=== PATIENT | male | born 1945 | race Caucasian/White ===

== ENCOUNTER 2024-10-20 14:44 | Inpatient (IN) | payer MEDICARE, OTHER, SELFPAY ==
[2024-10-20] VITALS (12 sets, daily range): BP systolic 101–171; BP diastolic 42–83; BMI 25.8; BMI 25.0
--- NOTE | 2024-10-20 09:34 | ED.GENMED ---
History of Present Illness
General
Chief Complaint: Abdominal Pain
Source: patient and ambulance crew
Exam Limitations: none
Time Seen by Provider: 10/20/24 09:27
Nursing documentation reviewed up to this point in time: agreed with
History of Present Illness
History of Present Illness:
79-year-old male presents emergency room due to syncope episode. This occurred when he was kneeling down at [employer]. He complains of lower and mid abdominal pain. He denies any chest pain or shortness of breath.
Past History
Past History
ED Past Medical History: HTN
ED Past Surgical History: Appendectomy and Orthopedic (Back)
Social History
Tobacco: Former smoker
Alcohol: Occasional
Drug: None
Review of Systems
Review of Systems
Allergies reviewed?: Yes
All Other Systems: Not applicable
Constitutional: Reports no symptoms
EENT: Reports no symptoms
Respiratory: Reports no symptoms
Cardiac: Reports syncope
ABD/GI: Reports abdominal pain
: Reports no symptoms
Musculoskeletal: Reports no symptoms
Skin: Reports no symptoms
Neurological: Reports no symptoms
Endocrine: Reports no symptoms
Hematologic/Lymphatic: Reports no symptoms
Psychiatric: Reports no symptoms
Phy Exam
Physical Exam
Physical Exam:
Physical Exam
General: no apparent distress, not acutely ill
Neck: supple. no meningeal signs. normal posterior pharynx
Heart: s1/s2 regular rate and rhythm, no murmur. equal radial
pulses.
HEENT: Pupils equal round reactive to light, EOMI
Lungs: no acute respiratory distress. clear bilaterally
Abdomen: normal bowel sounds. Diffuse tenderness, no rebound or guarding. no CVAT
Neuro: alert and oriented. no focal neurological deficits cranial nerves II through XII intact
Skin: no rash
Psychiatric: well kept. interactive and cooperative
Extremities: no edema. no calf tenderness. negative homans. good distal pulses
Course
Orders/Labs/Results
Orders:
Orders
10/20/24 09:28
Electrocardiogram (*1) Urgent
Reason for Study: Abdominal Pain
10/20/24 09:33
Electrocardiogram (*1) Stat
Reason for Study: Abdominal Pain
CT Abd/Pel (IV only)-DH only Urgent
Comment:
Reason For Exam: diffuse abdominal pain
Cardiac Monitoring- Treatment ONCE
EKG- Treatment ONCE
IV Insert/Care/Rem.- Treatment PRN
Pulse Ox/cont/shift [RESP] Stat
Quantity: 1
10/20/24 09:38
Complete Blood Count/With Diff Urgent
Troponin I Urgent
10/20/24 Lunch
NPO
Allow oral meds: Yes
Allow clear liquids: Sips of Clears
10/20/24 10:01
Comprehensive Metabolic Panel Urgent
Lipase Urgent
10/20/24 11:36
Urinalysis Reflex To Culture Urgent
Date Specimen was Collected: 10/20/24
Time Specimen was Collected: 11:34
Urine Microscopic Reflex Cult Urgent
10/20/24 11:49
HYDROmorphone [Dilaudid] 0.5 mg IV NOW STA
10/20/24 11:51
Ondansetron Injectable [Zofran] 4 mg IV NOW STA
10/20/24 14:11
Lactated Ringers [Lr] 500 ml IV BOLUS
10/20/24 14:26
Admit/Transfer Patient As Directed
Co-Sign Provider:
Level of Care: Inpatient admission
Assign to:: Telemetry
Physician / Group: Hospitalist
Diagnosis: Acute Pancreatitis
Reason for Telemetry: Other
Other Reason for Telemetry: Hrt Mr
Date to Stop Telemetry: 10/22/24
Time to Stop Telemetry: 11:00
Reason for Hospitalization: Acute Pancreatitis
Expected length of stay greater than two midnights?: Yes
ELOS- Estimated Length of Stay in days: 3
I certify the patient meets the requirements for IP care: Yes
PRN Pain Medication Management As Directed
May give lesser potent ordered pain med per pt: Yes
preference::
Protocol:: Medication orders for pain may be administered in a
manner that supports deferring to patient preference
when the pt is:
- Requesting an ordered lesser potent pain medication.
Least to most potent pain medications are defined
as: acetaminophen < NSAID < tramadol < opioids
(morphine, oxycodone, hydromorphone).
- Requesting a lesser dose of the same medication IF
ORDERED.
- Requesting a less intrusive route of administration
if both routes are prescribed by the provider (PO <
IV).
10/20/24 14:27
Code Status As Directed
Resuscitation Status: Full Code
10/20/24 15:00
Lactated Ringers [Lr] 1,000 ml IV 150 mls/hr
10/20/24 15:01
Troponin I Routine
10/20/24 16:48
Acetaminophen [Tylenol] 650 mg PO Q4HPRN PRN
Bisacodyl [Dulcolax] 10 mg RECTAL [id number] PRN
Docusate W/Senna [Senokot-S] 1 tablet PO BIDPRN PRN
HYDROmorphone [Dilaudid] 0.5 mg IV Q4HPRN PRN
Oxycodone [Roxicodone] 5 mg PO Q4HPRN PRN
Pantoprazole [Protonix IV] 40 mg IV DAILY
Polyethylene Glycol Powder [Miralax] 17 grams PO DAILYPRN PRN
10/20/24 16:48
Echo 2D MMode Color/Doppler Routine
Reason for Study: MR AA
GASTROINTESTINAL CONSULT Routine
Consulting Provider: Milla Wheeler
Was physician already notified: Yes
Reason for consult: Pancreatitis
MRI Abdomen [MR Abdomen W/o & W Contrast] Routine
Comment: pls DO MRCP also
Reason For Exam: pancreatitis, weight loss
Recent pill cam endoscopy?: No
Activity As Directed
Activity Level: Ambulate
Vital Signs As Directed
Frequency: q4h
DX Deep Vein Thrombosis Video Routine
10/20/24 18:00
Enoxaparin Sodium [Lovenox] 40 mg SC QPM
10/21/24 06:00
Complete Blood Count/No Diff IN AM
Comprehensive Metabolic Panel IN AM
Lipase IN AM
Triglycerides IN AM
10/22/24 11:00
DC Protocol for Telemetry ONCE
Abnormal Lab Results
10/20/24 10/20/24 10/20/24
09:38 10:01 11:36
RBC 4.31 L 10^6/uL
(4.70-6.10)
Hct 38.5 L %
(39.0-52.0)
MCH 31.1 H pg
(27.0-31.0)
Absolute Monos (auto) 0.7 H 10^3/uL
(0.1-0.6)
Lymphocytes % 19.0 L %
(20.5-51.1)
Chloride 108 H mmol/L
(98-107)
BUN 29 H mg/dl
(9-20)
Glucose 172 H mg/dl
(70-99)
Lipase > 4000 H* U/L
(23-300)
Urine Bacteria (Reflex) Few A
(Negative)
Urine Albumin (Reflex) 2+ A
(Neg - Trace)
10/20/24 09:38
10/20/24 10:01
Vital Signs
Initial and Last Documented VS:
Initial Vital Signs
BP
146/56
10/20/24 09:28
Last Documented Vital Signs
Temp Pulse Resp BP Pulse Ox
97.4 F 109 20 154/79 100
10/20/24 17:01 10/20/24 17:01 10/20/24 17:01 10/20/24 17:01 10/20/24 17:01
MDM/Problems Addressed
Differential Diagnosis Includes:
Pancreatitis, ACS, dysrhythmia
MDM/Problems Addressed:
79-year-old male with pancreatitis, syncope. Admit to hospitalist.
Chronic conditions affecting care: Cancer (Prostate)
*Radiology
Radiology exam reviewed: radiology read reviewed (CT abdomen pelvis shows pancreatitis)
*Pulse Oximetry
Patient hypoxic: no
*EKG
Interpreted by ED Provider?: Yes
EKG Intrepretation Date: 10/20/24
EKG Intrepretation Time: 09:30
Interpretation: abnormal
Comparison EKG: no comparison EKG present
Heart Rate: 65
Rate: normal
Rhythm: sinus
[place]: normal axis
Interval: normal interval
QRS Pattern: right bundle branch block
Ischemia: no ischemia
*Director Content Marketing Interpretation
Rate: normal
Interpretation: normal
Heart Rate: 66
Rhythm: sinus
*Critical Care Note
Total Time (30-74mins, 75-104mins- exclusive of procedures): Not Applicable
Patient Management
Social determinants of health affecting care: Living situation and Strong social support
Discussion with other providers: Hospitalist
Escalation/DeEscalation of care consider admission/obs:
Admission indicated
ED Attending Note
-
Portions of this chart may have been created with voice recognition software.� Occasional wrong word or��sound alike� substitutions may have occurred due to the inherent limitations of voice recognition software.
Discharge Plan
Departure
Patient Disposition: Admit
Date of Disposition: 10/20/24
Time of Disposition: 11:21
Admit to: Telemetry
Presentation/result/management discussed w/ accepting MD/DO: Hospitalist
Patient with high blood pressure during this ER visit?: Yes
Condition: Good
Discharge Problem:
Pancreatitis, Syncope
Interventions
Interventions:
*Risk Screen - Suicide Last Done: 10/20/24 09:31
*General Assessment Last Done: 10/20/24 09:31
*Neglect/Abuse Screening Last Done: 10/20/24 09:31
*ED COVID-19 Vaccine History Last Done: 10/20/24 09:53
*Nursing Disposition Last Done: 10/20/24 16:57
NI-Czuczb-Emltntczek Assessment Last Done: 10/20/24 09:54
Discharge Date and Time
Discharge Date/Time: 10/20/24 17:02
[2024-10-20 09:57] LABS: % Basophils 0.5 % (0-2); % Eosinophils 1.3 % (0-6); % Immature Granulocytes 0.3 % (0-0.5); % Monocytes 7.6 % (1.7-9.3); % Neutrophils 71.3 % (42.2-75.2); Absolute Eosinophils 0.1 10^3/uL (0-0.7); Absolute Lymphocytes 1.7 10^3/uL (1.2-3.4); Absolute Monocytes 0.7 10^3/uL (0.1-0.6); Absolute Neutrophils 6.3 10^3/uL (1.4-6.5); Hematocrit 38.5 % (39.0-52.0); Hemoglobin 13.4 g/dL (13.0-18.0); Mean Corp Hgb Conc. 34.8 g/dL (33.0-37.0); Mean Corpuscular Hgb 31.1 pg (27.0-31.0); Mean Corpuscular Volume 89.3 fL (80.0-94.0); Mean Platelet Volume 9.5 fL (7.4-10.4); Nucleated Red Blood Cells % 0 % (-); Platelet Count 219 10^3/uL (130-400); Red Blood Cell Count 4.31 10^6/uL (4.70-6.10); Red Cell Dist. Width 14.1 % (11.5-14.5); White Blood Cell Count 8.8 10^3/uL (4.8-10.8)
[2024-10-20 10:13] LABS: Troponin I 0.024 ng/ml
[2024-10-20 10:20] LABS: ALT (SGPT) 17 U/L (0-50); AST (SGOT) 22 U/L (17-59); Alkaline Phosphatase 77 U/L (38-126); Blood Urea Nitrogen 29 mg/dl (9-20); Calcium 10.1 mg/dl (8.4-10.2); Carbon Dioxide 24 mmol/L (22-30); Chloride 108 mmol/L (98-107); Glucose 172 mg/dl (70-99); Potassium 3.6 mmol/L (3.5-5.1); Sodium 139 mmol/L (135-145); Total Bilirubin 0.9 mg/dl (0.2-1.3); Total Protein 6.5 g/dl (6.3-8.2); eGFR > 60.00
[2024-10-20 10:42] LABS: Lipase > 4000 U/L (23-300)
[2024-10-20 11:43] LABS: Urine Albumin 2+ (Neg - Trace); Urine Bilirubin Negative (Negative); Urine Character Clear (Clear); Urine Color Yellow; Urine Glucose Negative (Negative); Urine Ketone Negative (Negative); Urine Leukocyte Negative (Negative); Urine Nitrite Negative (Negative); Urine Occult Blood Negative (Negative); Urine Specific Gravity 1.005 (<1.030); Urine Urobilinogen Negative (Neg - 1+); Urine pH 6.5 (5.0-9.0)
[2024-10-20 11:52] LABS: Urine Bacteria Few (Negative); Urine Red Blood Cell 0-2 /HPF (0-2); Urine White Cell 0-2 /HPF (0-5)
[2024-10-20] MEDS: DILAUDID 0.5 MG IV ×3 (12:01→19:21)
[2024-10-20] MEDS: ZOFRAN 4 MG IV (12:01)
--- NOTE | 2024-10-20 14:12 | CM ---
Patient seen at bedside in ED. Patient with also present. Patient states that they live in a 2 story home with no DME at home. Patient with no past VN or SNF placement. Patient PCP is Dr. Santiago and he uses the [facility] [address] in [place].
Patient plan is home with no needs. Patient complaining of significant pain. CM will continue to follow for discharge planning needs.
Plan;home with no needs vs home with VN
--- NOTE | 2024-10-20 14:31 | HPS.HSE ---
Family Physician
-
Family Physician: Hi Santiago
Chief Complaint
-
Abdominal pain
History of Present Illness
79-year-old male who was in [employer] kneeling down today and he had severe sharp pain in the abdomen then he passed out. He denies any chest pain or shortness of breath. Patient states that the pain was 6 out of 10 and is much better now. Radiates
to the back Dilaudid got the pain better
Medical History
Past Medical History
Past Medical History: Reports Other
Additional Past Medical History:
Discectomy, cataract surgery, tonsillectomy, appendectomy
Past Surgical History: Reports Other
Additional Past Surgical History:
Hypertension, history of prostate cancer
Social History
Tobacco: Former Smoker (Quit 15 years ago)
Alcohol: Other (Drinks 1 glass of [employer] on Monday /Monday /Monday)
Drug: None
Personal:
Living: With Family
Employment: Retired
Family History
Family History: Cancer (Father had some sort of cancer) and Other (Mother had CHF)
Allergies / Home Medications
Allergies reflects when Allergies were last updated in [email or web address].
Home Medications with original date entered in [email or web address]
Allergy/Medication List:
Allergies
Allergy/AdvReac Type Severity Reaction Status Date / Time
No Known Allergies Allergy Verified 10/20/24 09:31
Home Medications
amlodipine 10 mg tablet (Norvasc) 10 mg PO DAILY 10/20/24
glucosamine sulf dipot chlr,msm,chond 550 mg-C 30 mg-arianna 1 mg capsule (Glucosamine Chondroitin) 1 cap PO DAILY 10/20/24
ibuprofen 200 mg tablet (Advil) 400 mg PO HSPRN PRN mild pain 10/20/24
ketoconazole 2 % topical cream 1 applic topical DAILYPRN PRN scalp 10/20/24
lisinopril 20 mg-hydrochlorothiazide 25 mg tablet 1 tab PO DAILY 10/20/24
therapeutic multivitamin 1 tab PO DAILY 10/20/24
Review of Systems
-
A 12 point ROS was completed and negative except as noted: Yes
Respiratory: Denies Trouble Breathing
Cardiac: Denies Chest Pain
Abdomen/GI: Reports Abdominal Pain; Denies Diarrhea
Physical Exam
Vital Signs
Vital Signs
Temp Pulse Resp BP Pulse Ox
97.4 F 61 16 101/52 99
10/20/24 09:50 10/20/24 12:45 10/20/24 11:45 10/20/24 12:00 10/20/24 12:45
Physical Exam
General: Comfortable
Respiratory: Clear
Cardiac: S1/S2, Regular Rhythm and Murmur (aa)
GI: Soft, Normal Bowel Sounds and Tender (epigastric)
Neuro: AO x 3 and Nonfocal/grossly intact
Psych: Intact Judgment/Insight
Laboratory Results
-
10/20/24 09:38
10/20/24 10:01
Laboratory Results
Total Bilirubin 0.9 mg/dl (0.2-1.3) 10/20/24 10:01
AST 22 U/L (17-59) 10/20/24 10:01
ALT 17 U/L (0-50) 10/20/24 10:01
Alkaline Phosphatase 77 U/L (38-126) 10/20/24 10:01
Troponin I 0.024 ng/ml 10/20/24 09:38
Lipase > 4000 U/L (23-300) H* 10/20/24 10:01
Impression/Plan
-
IMPRESSION/PLAN:
79 y/o with ABd pain and syncope
CT A/P -Moderate pancreatic/peripancreatic edematous changes compatible with acute pancreatitis. No accompanying discrete well-formed abnormal focal fluid collection. Follow-up CT could be performed to assess for development of pancreatic
pseudocyst, if clinically warranted.
Small right inguinal hernia containing fat and loop of unremarkable small bowel without proximal small bowel dilatation/obstruction.
Bilateral subcentimeter low-attenuation renal lesions too small to characterize.
# Acute pancreatitis
Elevated lipase and also peripancreatic edematous changes on the CT
Patient uses moderate alcohol Monday 1 drink of Tyfone
With 12 pound weight loss in the past month and a half check MRI/MRCP
Follow lipase, check triglycerides
N.p.o. with IV fluids
GI evaluation
# Syncope-likely secondary to pain-follow symptoms with IV fluids
# 12 pound weight loss last colonoscopy was in 2016 showed diverticulosis of the descending colon, transverse colon and ascending colon. Nonbleeding external hemorrhoids
# Bifascicular block on EKG and patient also has heart murmur. Check 1 set of troponin. Check echo routine
# Hypertension-blood pressure on the low side therefore hold lisinopril hydrochlorothiazide and amlodipine
# History of prostate cancer
# Diverticulosis
# DVT prophylaxis-Lovenox
# Full code
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 He did have 12 pound weight loss which he attributes to that.
Discussed with at bedside
[2024-10-20] MEDS: LR 500 IV (14:55)
[2024-10-20 15:41] LABS: Troponin I 0.014 ng/ml
[2024-10-20] MEDS: LR 1000 IV ×2 (16:32→23:57)
[2024-10-20] MEDS: PROTONIX IV 40 MG IV (17:14)
[2024-10-20] MEDS: LOVENOX 40 MG SC (17:14)
[2024-10-20] MEDS: NSS (PRESERVATIVE FREE) 10 ML IV (17:15)
--- NOTE | 2024-10-20 17:50 | PTCARENOTE ---
Received pt from ED. AAOx3. All medication administered as prescribed. Pt can make needs known. Updated on plan of care. All safety measures are in place.
[2024-10-20] MEDS: SENOKOT-S 1 TABLET PO (19:21)
[2024-10-20] MEDS: ROXICODONE 5 MG PO (20:52)
[2024-10-21] VITALS (7 sets, daily range): BP systolic 150–174; BP diastolic 64–85
[2024-10-21] MEDS: ROXICODONE 5 MG PO (01:43)
--- NOTE | 2024-10-21 03:42 | PTCARENOTE ---
Pt has been anxious at times and forgetful. AAOx2. Mild tremors. Gen weakness. ST to NSR w/ BBB in the monitor. C/O adb and lower back pain. See JUL. Bed alarm in place.
[2024-10-21] MEDS: LR 1000 IV ×4 (06:35→20:24)
[2024-10-21 07:12] LABS: Hematocrit 37.6 % (39.0-52.0); Hemoglobin 13.1 g/dL (13.0-18.0); Mean Corp Hgb Conc. 34.8 g/dL (33.0-37.0); Mean Corpuscular Hgb 30.8 pg (27.0-31.0); Mean Corpuscular Volume 88.5 fL (80.0-94.0); Mean Platelet Volume 9.9 fL (7.4-10.4); Platelet Count 198 10^3/uL (130-400); Red Blood Cell Count 4.25 10^6/uL (4.70-6.10); Red Cell Dist. Width 14.2 % (11.5-14.5); White Blood Cell Count 19.4 10^3/uL (4.8-10.8)
[2024-10-21 07:53] LABS: ALT (SGPT) 18 U/L (0-50); AST (SGOT) 40 U/L (17-59); Albumin 3.9 g/dl (3.5-5.0); Alkaline Phosphatase 56 U/L (38-126); Blood Urea Nitrogen 27 mg/dl (9-20); Calcium 9.9 mg/dl (8.4-10.2); Carbon Dioxide 29 mmol/L (22-30); Chloride 104 mmol/L (98-107); Estimated Creatinine Clearance 73 ml/min; Glucose 133 mg/dl (70-99); Potassium 3.3 mmol/L (3.5-5.1); Sodium 139 mmol/L (135-145); Total Bilirubin 1.5 mg/dl (0.2-1.3); Total Protein 6.3 g/dl (6.3-8.2); Triglycerides 70 mg/dl (10-149); eGFR > 60.00
[2024-10-21] MEDS: NSS (PRESERVATIVE FREE) 10 ML IV (08:41)
[2024-10-21] MEDS: PROTONIX IV 40 MG IV (08:41)
[2024-10-21] MEDS: FLUSH (NSS) 1 FLUSH IV ×4 (08:41→15:04)
[2024-10-21] MEDS: DILAUDID 0.5 MG IV (08:48)
[2024-10-21 10:12] LABS: Lipase > 4000 U/L (23-300)
--- NOTE | 2024-10-21 11:56 | CON.GI ---
Consultation
-
Date/Time Consultation Requested: 10/21/24
Date/Time Consultation Performed: 10/21/24
Requesting Provider:
Performing Provider:
Reason for Consultation: Abdominal pain
Medical History
Chief Complaint / HPI
Chief Complaint: Abdominal pain
History of Present Illness:
79-year-old male with history of hypertension presenting with complaints of mid/lower abdominal pain and syncopal episode when he was at [employer] yesterday, came to the emergency room, noted to have elevated lipase suggesting pancreatitis. As per
patient, in the morning he felt fine and at [employer] had dizziness, syncopal episode and abdominal pain, 10/10, radiation to the back. No previous similar episodes. No nausea, vomiting, heartburn or trouble swallowing. No constipation, diarrhea,
blood in the stool or black stool. He did lose about 10 pounds in the last 6 weeks after his was diagnosed with cancer. No previous episodes of pancreatitis. He has been on lisinopril for several years, no recent new medication. Drinks 1
glass of alcohol on Monday, Monday and Monday and not more than that and not on the week. No family history of pancreatitis or pancreatic cancer. Former smoker but not recently. No regular NSAID use.
On admission, LFTs were normal but today total bilirubin was 1.5. Also noted today was elevation in the white count to 19, normal in admission. Normal creatinine and hemoglobin. CT scan of the abdomen pelvis with IV contrast only showing moderate
pancreatic/peripancreatic edematous change compatible with acute pancreatitis. Small right inguinal hernia containing fat and loops of small bowel without obstruction or dilation.
No fevers or chills noted. Currently getting Ringer lactate at 150 mL an hour.
Colonoscopy was in [address] Dumont showing benign polyps in the cecum and diverticulosis,Colonoscopy in 2010 and 2008 showing benign polyps.
Past Medical History
Past Medical History: HTN and Other (Prostrate cancer)
Past Surgical History: Appendectomy
Social History
Tobacco: Former Smoker
Alcohol: Occasional (1 drink on Monday, Monday and Monday)
Family History
Family History: Other (No family history of colon cancers)
Allergies / Home Medications
Allergy/AdvReac Type Severity Reaction Status Date / Time
No Known Allergies Allergy Verified 10/20/24 09:31
�Medication �Instructions �Recorded
amlodipine 10 mg tablet (Norvasc) 10 mg PO DAILY 10/20/24
glucosamine sulf dipot 1 cap PO DAILY 10/20/24
chlr,msm,chond 550 mg-C 30 mg-arianna
1 mg capsule (Glucosamine
Chondroitin)
ibuprofen 200 mg tablet (Advil) 400 mg PO HSPRN PRN mild pain 10/20/24
ketoconazole 2 % topical cream 1 applic topical DAILYPRN PRN scalp 10/20/24
lisinopril 20 1 tab PO DAILY 10/20/24
mg-hydrochlorothiazide 25 mg tablet
therapeutic multivitamin 1 tab PO DAILY 10/20/24
Review of Systems
-
All other systems: A 12 pt ROS was Negative except as stated above in HPI
Vital Signs
Temp Pulse Resp BP Pulse Ox
98.5 F 103 18 151/64 97
10/21/24 11:34 10/21/24 11:34 10/21/24 11:34 10/21/24 11:34 10/21/24 11:34
Physical Exam
Exam
Cardiac: S1/S2 and Regular Rhythm
GI: Soft and Tender (Tenderness on palpation in the upper abdomen and decreased bowel sounds)
Results
WBC 19.4 10^3/uL (4.8-10.8) H 10/21/24 06:16
Hgb 13.1 g/dL (13.0-18.0) 10/21/24 06:16
Hct 37.6 % (39.0-52.0) L 10/21/24 06:16
MCV 88.5 fL (80.0-94.0) 10/21/24 06:16
Plt Count 198 10^3/uL (130-400) 10/21/24 06:16
Absolute Neuts (auto) 6.3 10^3/uL (1.4-6.5) 10/20/24 09:38
Sodium 139 mmol/L (135-145) 10/21/24 06:16
Potassium 3.3 mmol/L (3.5-5.1) L 10/21/24 06:16
Chloride 104 mmol/L (98-107) 10/21/24 06:16
Carbon Dioxide 29 mmol/L (22-30) 10/21/24 06:16
BUN 27 mg/dl (9-20) H 10/21/24 06:16
Creatinine 0.9 mg/dL (0.7-1.3) 10/21/24 06:16
Calcium 9.9 mg/dl (8.4-10.2) 10/21/24 06:16
Total Bilirubin 1.5 mg/dl (0.2-1.3) H 10/21/24 06:16
AST 40 U/L (17-59) 10/21/24 06:16
ALT 18 U/L (0-50) 10/21/24 06:16
Alkaline Phosphatase 56 U/L (38-126) 10/21/24 06:16
Lipase > 4000 U/L (23-300) H* 10/21/24 06:16
Diagnostic Image Results:
Prior GI Procedures:
EGD:
Colonoscopy:
Assessment / Plan
-
79-year-old male with history of hypertension, prostrate cancer presented with acute onset abdominal pain and syncopal episode, in the ER noted to have elevated lipase suggesting pancreatitis, LFTs have been normal, gallbladder appears normal. No
previous history of pancreatitis. No recent new medication
- Acute pancreatitis, first episode, no gallstones, alcohol on the weekends and not more than a drink. No recent new medication.
Unclear etiology
Currently on clear liquid diet, would not advance.
pain control.
Increase Ringer lactate 200 cc an hour
Will continue to trend LFTs and lipase
Will add CRP
Eventually will need MRI/MRCP
-
-
Thank you for consultation and allowing me to participate in the patient's care. Please call the supervisor component assembler GI physician during the after hours with any questions or concerns.
[2024-10-21] MEDS: KCL ELIXIR 40 MEQ PO (12:28)
--- NOTE | 2024-10-21 12:31 | W.PN.HOSP.TC ---
Today's Communication/Plan
-
Add Toradol IV
Clear liquid diet
Decrease rate of IV fluids
GI consult
MRI
Assessment / Plan
Assessment / Plan
Gen-AAOx3, NAD
HEENT-NC, AT, anicteric, clear oral mm
Neck-supple
CV-reg, systolic M, +S1/S2
Lungs-clear B/L
Abd-soft, periumbilical tenderness without guarding
Ext-no edema
Musculoskeletal-no cyanosis, clubbing
Skin-warm and dry
Neuro-grossly non-focal
Psych-calm, cooperative
Acute pancreatitis -etiology possibly due to alcohol use versus other. No gallstones noted on CT. MRI abdomen pending. Start clear liquid diet. GI consulted.
Leukocytosis noted, afebrile. Looks nontoxic.
Decrease rate of IV fluids. Continue IV Dilaudid as needed. Add Toradol IV as needed.
First episode of pancreatitis.
12 pound weight loss over the past 6 weeks, patient attributes to recent diagnosis of malignancy for his . Appetite did go down.
Alcohol cessation advised.
Hypokalemia -will replete. Check magnesium.
Incidental right inguinal hernia -asymptomatic. Noted on CT scan. Discussed with patient and family to follow-up as outpatient.
Syncope -suspect vasovagal. Check orthostatics when more stable.
Essential hypertension -stable.
history of prostate cancer
Diverticulosis
Full code
Family updated at the bedside.
Anticipated Discharge: > 48 hours
Subjective/Interval History
-
Date of Service: October 21, 2024
Patient seen and examined. Complaining of abdominal pain.
Objective Data
-
Labs:
Laboratory Results
10/21/24
06:16
WBC 19.4 H
Hgb 13.1
Hct 37.6 L
Plt Count 198
Sodium 139
Potassium 3.3 L
Chloride 104
Carbon Dioxide 29
BUN 27 H
Creatinine 0.9
Glucose 133 H
Calcium 9.9
Total Bilirubin 1.5 H
AST 40
ALT 18
Alkaline Phosphatase 56
Vital Signs:
Vital Signs
Temp Pulse Resp BP Pulse Ox
98.5 F 103 18 151/64 97
10/21/24 11:34 10/21/24 11:34 10/21/24 11:34 10/21/24 11:34 10/21/24 11:34
I&O
10/20/24 10/21/24 10/22/24
06:59 06:59 06:59
Intake Total 1650 / 1650
Balance 1650 / 1650
Review of Systems
-
History Source: Patient
All other systems: Reviewed and negative
[2024-10-21] MEDS: LR IV (13:04)
[2024-10-21] MEDS: TORADOL 15 MG IV ×2 (13:07→20:23)
[2024-10-21 13:23] LABS: Magnesium 1.5 mg/dl (1.6-2.3)
[2024-10-21] MEDS: MAGNESIUM SULFATE 100 IV (15:03)
[2024-10-21] MEDS: THIAMINE INJECTION 200 MG IV (15:03)
[2024-10-21] MEDS: FOLVITE 1 MG PO (15:04)
--- NOTE | 2024-10-21 16:26 | PTCARENOTE ---
Pt AAO x3; forgetful; cooperative. LOJA well, OOB to BR with minimal assistance x1; denies weakness/dizziness w/OOB activity. VSS. Telemetry:NSR with PAC's/PVC's. On room air- pulse ox 94%, no SOB noted. Abd soft, rounded, pt c/o lower rt abd
pain radiating to Rt lower back; good effect with IV Toradol. Pt kurt small amts clear liquids PO. Voiding in BR without difficulty. IVF's RL @ 200 ml /hr infusing via R forearm site without sx of infiltration. Resting quietly at present. Will
continue to monitor.
[2024-10-21] MEDS: LOVENOX 40 MG SC (17:36)
[2024-10-22] VITALS (9 sets, daily range): BP systolic 146–167; BP diastolic 65–79; BMI 25.0
[2024-10-22] MEDS: LR 1000 IV ×3 (04:31→14:56)
[2024-10-22 07:33] LABS: Hematocrit 35.2 % (39.0-52.0); Hemoglobin 12.2 g/dL (13.0-18.0); Mean Corp Hgb Conc. 34.7 g/dL (33.0-37.0); Mean Corpuscular Hgb 31.1 pg (27.0-31.0); Mean Corpuscular Volume 89.8 fL (80.0-94.0); Mean Platelet Volume 10.1 fL (7.4-10.4); Platelet Count 172 10^3/uL (130-400); Red Blood Cell Count 3.92 10^6/uL (4.70-6.10); Red Cell Dist. Width 14.2 % (11.5-14.5); White Blood Cell Count 23.7 10^3/uL (4.8-10.8)
[2024-10-22 07:51] LABS: ALT (SGPT) 21 U/L (0-50); AST (SGOT) 63 U/L (17-59); Albumin 3.4 g/dl (3.5-5.0); Alkaline Phosphatase 54 U/L (38-126); Blood Urea Nitrogen 24 mg/dl (9-20); Calcium 9.2 mg/dl (8.4-10.2); Carbon Dioxide 29 mmol/L (22-30); Chloride 104 mmol/L (98-107); Estimated Creatinine Clearance 82 ml/min; Glucose 123 mg/dl (70-99); Magnesium 2.1 mg/dl (1.6-2.3); Potassium 3.2 mmol/L (3.5-5.1); Sodium 138 mmol/L (135-145); Total Bilirubin 1.9 mg/dl (0.2-1.3); Total Protein 5.8 g/dl (6.3-8.2); eGFR > 60.00
[2024-10-22] MEDS: NSS (PRESERVATIVE FREE) 10 ML IV ×3 (07:58→23:27)
[2024-10-22] MEDS: THIAMINE INJECTION 200 MG IV (07:58)
[2024-10-22] MEDS: FOLVITE 1 MG PO (07:58)
[2024-10-22] MEDS: PROTONIX IV 40 MG IV (07:58)
--- NOTE | 2024-10-22 09:28 | W.PN.GI.CBS2 ---
Addendum entered and electronically signed by Bharti Jiang Do, MD 10/22/24 14:46:
I saw and examined the patient.
The HEAT TREAT OPERATOR's note was reviewed and I agree with the note.
Comment: Overnight confusion pulled out IV and naked in bathroom. bedside thinks he drinks more ETOH than previously reported. Vitals stable exam diffuse TTP confusion sleepy but arousable. Labs reviewed.
Recommendation
- Bolus LR 1L x1 now
- Pain management
- MRI/MRCP when able to tolerate test
- NPO for now due to mental status
updated bedside will follow with you
Original Note:
Today's Communication / Plan
-
etiology of pancreatitis - etiology unclear no stones on CT, ETOH 1 glass with dinner, TG/calciums stable, no hx family or personal hx pancreatitis on past , no new meds
trend CRP
add IGG4
await MRI with MRCP
NPO
pain control on 10/05 was 8 on admission
cont IVF LR at 120ml/hr
keep electrolyte corrected
will need OP follow up after admission
Assessment / Plan
-
79-year-old male with history of hypertension, prostrate cancer presented with acute onset abdominal pain and syncopal episode, in the ER noted to have elevated lipase suggesting pancreatitis, LFTs have been normal, gallbladder appears normal. No
previous history of pancreatitis. No recent new medication, TG 70, calcium 9.9.
10/20/24 CT Abd/Pel (IV only)-DH only
Moderate pancreatic/peripancreatic edematous changes compatible with acute pancreatitis. No accompanying discrete well-formed abnormal focal fluid collection. Follow-up CT could be performed to assess for development of pancreatic pseudocyst, if
clinically warranted.
Small right inguinal hernia containing fat and loop of unremarkable small bowel without proximal small bowel dilatation/obstruction.
Bilateral subcentimeter low-attenuation renal lesions too small to characterize.
- Acute pancreatitis, first episode, no gallstones, alcohol on the weekends and not more than a drink. No recent new medication.
-leukocytosis
-increased CRP
-mild increased LFT's
-hypokalemia
other med problems:
-HTN
-prostate CA
PLAN:
etiology of pancreatitis - etiology unclear no stones on CT, ETOH 1 glass with dinner, TG/calciums stable, no hx family or personal hx pancreatitis on past , no new meds
trend CRP
add IGG4
await MRI with MRCP
NPO
pain control on 10/05 was 8/ on admission
cont IVF LR at 120ml/hr
keep electrolyte corrected
will need OP follow up after admission
Subjective
Subjective
Date of Service: October 22, 2024
10/19 brown stool, NPO for MRI-- pain 01/05 on admission now 10/05
Objective
Data Reviewed
Laboratory Data:
Laboratory Results
10/22/24 06:09
10/22/24 06:09
Laboratory Results
Magnesium 2.1 mg/dl (1.6-2.3) 10/22/24 06:09
Total Bilirubin 1.9 mg/dl (0.2-1.3) H 10/22/24 06:09
AST 63 U/L (17-59) H 10/22/24 06:09
ALT 21 U/L (0-50) 10/22/24 06:09
Alkaline Phosphatase 54 U/L (38-126) 10/22/24 06:09
Lipase > 4000 U/L (23-300) H* 10/21/24 06:16
Vital Signs and I&O:
Vital Signs
Temp Pulse Resp BP Pulse Ox
98.1 F 93 18 153/76 99
10/22/24 03:00 10/22/24 03:00 10/22/24 03:00 10/22/24 03:00 10/22/24 03:00
I&O
10/21/24 10/22/24 10/23/24
06:59 06:59 06:59
Intake Total 1649 / 1649 3420 / 3420
Output Total 575 / 575
Balance 1649 2845 / 2845
Physical Exam
Physical Exam
HEENT: Anicteric and Moist mucous membranes
Cardiology: Normal Sinus Rhythm
Pulmonary: Clear
GI: Soft, Distended (mild ) and Tender (epigastric )
Extremities: No Edema
Neuro: Non Focal
[2024-10-22] MEDS: KCL 270 MEQ IV (09:42)
[2024-10-22 10:07] LABS: % Basophils 0.1 % (0-2); % Immature Granulocytes 0.9 % (0-0.5); % Lymphocytes 2.4 % (20.5-51.1); % Monocytes 6.4 % (1.7-9.3); % Neutrophils 90.2 % (42.2-75.2); Absolute Immature Granulocytes 0.2 10^3/uL (0-0.05); Absolute Lymphocytes 0.6 10^3/uL (1.2-3.4); Absolute Monocytes 1.5 10^3/uL (0.1-0.6); Absolute Neutrophils 21.4 10^3/uL (1.4-6.5); Nucleated Red Blood Cells % 0 % (-)
[2024-10-22] MEDS: TORADOL 15 MG IV (11:05)
[2024-10-22] MEDS: ATIVAN 1 MG PO (11:05)
--- NOTE | 2024-10-22 12:19 | W.PN.HOSP.TC ---
Addendum entered and electronically signed by Riccardo Corea DO 10/22/24 15:50:
Transfer patient to IMU due to ongoing confusion and delirium. Code purple called overhead.
Left voicemail for patient's to call me back for an update.
Original Note:
Today's Communication/Plan
-
Alcohol withdrawal protocol
Await MRI
N.p.o.
Assessment / Plan
Assessment / Plan
Gen-AAOx3, NAD
HEENT-NC, AT, anicteric, clear oral mm
Neck-supple
CV-reg, systolic M, +S1/S2
Lungs-clear B/L
Abd-soft, periumbilical tenderness without guarding
Ext-no edema
Musculoskeletal-no cyanosis, clubbing
Skin-warm and dry
Neuro-grossly non-focal, bilateral hand tremors with arms extended
Psych-calm, cooperative
Acute pancreatitis -etiology possibly due to alcohol use versus other. No gallstones noted on CT. MRI abdomen pending, n.p.o. for MRI.
He has received 7.5 L of IV fluids during the first 48 hours of hospitalization. Continue lactated Ringer's IV at lower rate of 80 cc/h.
Leukocytosis noted, afebrile. Looks nontoxic.
Continue analgesics.
First episode of pancreatitis.
12 pound weight loss over the past 6 weeks, patient attributes to recent diagnosis of malignancy for his . Appetite did go down.
Delirium -concern for acute alcohol withdrawal syndrome. Suspect he drinks more than he admits to. Alcohol withdrawal protocol initiated. Continue thiamine, folic acid. Discussed with nursing.
Alcohol use disorder -as above. Alcohol cessation advised.
Hypokalemia -will replete. Potassium 3.2 this morning.
Hypomagnesemia -treated and improved.
Incidental right inguinal hernia -asymptomatic. Noted on CT scan. Discussed with patient and family to follow-up as outpatient.
Syncope -suspect vasovagal. Check orthostatics when more stable.
Essential hypertension -stable.
history of prostate cancer
Diverticulosis
Full code
Anticipated Discharge: > 48 hours
Subjective/Interval History
-
Date of Service: October 22, 2024
Patient seen and examined. Complaining of 5 out of 10 abdominal pain.
Objective Data
-
Labs:
Laboratory Results
10/22/24
06:09
WBC 23.7 H
Hgb 12.2 L
Hct 35.2 L
Plt Count 172
Sodium 138
Potassium 3.2 L
Chloride 104
Carbon Dioxide 29
BUN 24 H
Creatinine 0.8
Glucose 123 H
Calcium 9.2
Total Bilirubin 1.9 H
AST 63 H
ALT 21
Alkaline Phosphatase 54
Vital Signs:
Vital Signs
Temp Pulse Resp BP Pulse Ox
98.8 F 82 16 156/75 97
10/22/24 11:37 10/22/24 11:37 10/22/24 11:37 10/22/24 11:37 10/22/24 11:37
I&O
10/21/24 10/22/24 10/23/24
06:59 06:59 06:59
Intake Total 1650 / 1650 3420 / 3420
Output Total 575 / 575
Balance 1650 / 1650 2845 / 2845
Review of Systems
-
History Source: Patient
All other systems: Reviewed and negative
[2024-10-22] MEDS: NSS (PRESERVATIVE FREE) 0.5 ML IV ×3 (13:36→17:10)
[2024-10-22] MEDS: ATIVAN 1 MG IV ×3 (13:36→17:10)
--- NOTE | 2024-10-22 13:55 | CM ---
Pt confused . Unable to ask about [facility] consult.
visiting.
Will continue to assess and assist .
PLAN Offer [facility] when not confused.
Discharge planning on going.
--- NOTE | 2024-10-22 13:58 | PTCARENOTE ---
Received patient this am AAOx3 however patient seems to be forgetful. Patient then became restless and was trying to climb out of bed. Spoke to Dr. Corea. Pt started on MSAS at 11:00. Pt scored a 5. Medicated patient with Ativan 1mg PO as per
protocol. Pt was sleeping. 13:00 Pt woke up agitated, restless, took gown an tele monitor off and continuously climbing out of bed. MSAS 8 Pt medicated with Ativan 1 mg IV as per protocol at 13:40. Pt currently sleeping. Made patient comfortable.
Cont to assess patient status.
--- NOTE | 2024-10-22 16:05 | PTCARENOTE ---
1440 MSAS was a 4. Pt sleeping calmly in the bed. Cont to assess patient status.
--- NOTE | 2024-10-22 16:05 | PTCARENOTE ---
15:40 Pt woke up agitated, restless, impulsive, climbing out of bed. Pt very uncooperative. Code purple called. Pt medicated with Ativan 1 mg IV. Pt placed back to bed. Dr. Corea made aware. Plan is to transferred patient to IMU.
[2024-10-22] MEDS: LOVENOX 40 MG SC (17:10)
--- NOTE | 2024-10-22 17:12 | PTCARENOTE ---
Report given to IMU and patient transferred.
--- NOTE | 2024-10-22 18:00 | PTCARENOTE ---
Received patient into room 3344 from [facility]. Patient asleep on transfer but as soon as patient was turned, pt attempting to sit up and get OOB, pulling off gown and all equipment applied. Attempted to redirect patient and reorient, but unsuccessful.
Pt not answering questions or following directions. TT to , bilateral wrist restraints ordered and Phenobarbital added, see MAR. Patient grossly incontinent of bladder on arrival. at bedside and updated.
[2024-10-22] MEDS: PHENOBARBITAL 97.5 MG IV ×2 (18:09→21:29)
[2024-10-22] MEDS: ATIVAN 2 MG IV ×2 (20:12→23:27)
[2024-10-22 22:03] LABS: Blood Urea Nitrogen 23 mg/dl (9-20); Calcium 8.8 mg/dl (8.4-10.2); Carbon Dioxide 27 mmol/L (22-30); Chloride 107 mmol/L (98-107); Estimated Creatinine Clearance 82 ml/min; Glucose 121 mg/dl (70-99); Potassium 3.4 mmol/L (3.5-5.1); Sodium 136 mmol/L (135-145); eGFR > 60.00
[2024-10-22] MEDS: KCL 260 MEQ IV (22:33)
[2024-10-23] VITALS (17 sets, daily range): BP systolic 135–197; BP diastolic 69–132
[2024-10-23] MEDS: LR 1000 IV ×3 (02:00→22:05)
[2024-10-23] MEDS: DILAUDID 0.5 MG IV (02:26)
[2024-10-23] MEDS: ATIVAN 1 MG IV ×2 (02:26→12:40)
[2024-10-23 04:26] LABS: Hematocrit 32.3 % (39.0-52.0); Hemoglobin 11.3 g/dL (13.0-18.0); Mean Corpuscular Hgb 31.4 pg (27.0-31.0); Mean Corpuscular Volume 89.7 fL (80.0-94.0); Mean Platelet Volume 10.4 fL (7.4-10.4); Platelet Count 153 10^3/uL (130-400); Red Cell Dist. Width 14.2 % (11.5-14.5); White Blood Cell Count 20.8 10^3/uL (4.8-10.8)
[2024-10-23 04:46] LABS: ALT (SGPT) 22 U/L (0-50); AST (SGOT) 46 U/L (17-59); Alkaline Phosphatase 56 U/L (38-126); Blood Urea Nitrogen 22 mg/dl (9-20); Calcium 8.7 mg/dl (8.4-10.2); Carbon Dioxide 26 mmol/L (22-30); Chloride 109 mmol/L (98-107); Estimated Creatinine Clearance 82 ml/min; Glucose 121 mg/dl (70-99); Potassium 3.4 mmol/L (3.5-5.1); Sodium 138 mmol/L (135-145); Total Bilirubin 1.4 mg/dl (0.2-1.3); Total Protein 5.3 g/dl (6.3-8.2); eGFR > 60.00
[2024-10-23] MEDS: KCL 270 MEQ IV (05:43)
--- NOTE | 2024-10-23 06:25 | PTCARENOTE ---
Patient lethargic, confused, and unable to follow commands overnight. MSAS max of 11. PRN ativan given. Remains in b/l wrist restraints. sp02 dropped to the high 80s while asleep-2 liters NC placed.
[2024-10-23 06:27] LABS: Ammonia < 9 umol/L (9-30)
--- NOTE | 2024-10-23 07:46 | W.PN.HOSP.TC ---
Addendum entered and electronically signed by Riccardo Corea DO 10/23/24 08:26:
Updated patient's on the phone. All questions answered.
Her cell phone number is [phone].
Original Note:
Today's Communication/Plan
-
Hold sedation this morning
Clear liquid diet
Assessment / Plan
Assessment / Plan
Gen-sedated
HEENT-NC, AT, anicteric
Neck-supple
CV-reg, systolic M, +S1/S2
Lungs-clear B/L
Abd-soft, nontender
Ext-no edema
Musculoskeletal-no cyanosis, clubbing
Skin-warm and dry
Acute pancreatitis -suspect alcohol induced pancreatitis given alcohol withdrawal syndrome. No gallstones noted on CT. Okay to discontinue MRI abdomen, discussed with Dr. Zuniga from GI service. Start clear liquid diet.
He has received 10.5 L of IV fluids so far over the first 3 days of hospitalization. Continue lactated Ringer's IV at lower rate of 80 cc/h.
Leukocytosis noted, afebrile. Looks nontoxic. WBC count now trending down.
Bilirubin peaked at 1.9, repeat 1.4. ALT normal, mild AST elevation resolved.
Continue analgesics.
First episode of pancreatitis.
12 pound weight loss over the past 6 weeks, patient attributes to recent diagnosis of malignancy for his . Appetite did go down.
Acute alcohol withdrawal syndrome - suspect he drinks more than he admits to. Continue lorazepam as needed, received 9 mg of lorazepam since yesterday. Phenobarbital taper initiated 10/22 evening. Currently sedated.
Alcohol use disorder -as above. Alcohol cessation advised.
Hypokalemia -will replete. Potassium 3.4 this morning.
Hypomagnesemia -treated and improved.
Incidental right inguinal hernia -asymptomatic. Noted on CT scan. Discussed with patient and family to follow-up as outpatient.
Syncope -suspect vasovagal. Check orthostatics when more stable.
Essential hypertension -stable. Resume lisinopril. Hold HCTZ.
history of prostate cancer
Diverticulosis
Full code
Anticipated Discharge: > 48 hours
Subjective/Interval History
-
Date of Service: October 23, 2024
Patient seen and examined. Sedated, hard to arouse.
Objective Data
-
Labs:
Laboratory Results
10/22/24 10/23/24
21:41 03:47
WBC 20.8 H
Hgb 11.3 L
Hct 32.3 L
Plt Count 153
Sodium 136 138
Potassium 3.4 L 3.4 L
Chloride 107 109 H
Carbon Dioxide 27 26
BUN 23 H 22 H
Creatinine 0.8 0.8
Glucose 121 H 121 H
Calcium 8.8 8.7
Total Bilirubin 1.4 H
AST 46
ALT 22
Alkaline Phosphatase 56
Vital Signs:
Vital Signs
Temp Pulse Resp BP Pulse Ox
99.4 F 98 27 150/81 97
10/23/24 03:13 10/23/24 06:00 10/23/24 06:00 10/23/24 06:00 10/23/24 06:00
I&O
10/22/24 10/23/24 10/24/24
06:59 06:59 06:59
Intake Total 3420 / 3420 3060 / 3060
Output Total 575 / 575 400 / 400
Balance 2845 / 2845 2660 / 2660
Review of Systems
-
Unable to obtain full review of systems at this time due to: Acuity
[2024-10-23] MEDS: PROTONIX IV 40 MG IV (08:35)
[2024-10-23] MEDS: THIAMINE INJECTION 200 MG IV (08:35)
[2024-10-23] MEDS: NSS (PRESERVATIVE FREE) 10 ML IV (08:35)
[2024-10-23] MEDS: PHENOBARBITAL 97.5 MG IV ×2 (08:36→17:02)
[2024-10-23] MEDS: FOLVITE PO (08:39)
--- NOTE | 2024-10-23 10:44 | W.PN.GI.CBS2 ---
Today's Communication / Plan
-
Cancel MRI given cause of pancreatitis likely ETOH related and pt not cooperative for scan given altered mental status
Adv diet as tolerates currently limited due to mental status
C/w IVF
GI will sign off please call for ?
Assessment / Plan
-
79-year-old male with history of hypertension, prostrate cancer presented with acute onset abdominal pain and syncopal episode, in the ER noted to have elevated lipase suggesting pancreatitis, LFTs have been normal, gallbladder appears normal. No
previous history of pancreatitis. No recent new medication, TG 70, calcium 9.9.
10/20/24 CT Abd/Pel (IV only)-DH only
Moderate pancreatic/peripancreatic edematous changes compatible with acute pancreatitis. No accompanying discrete well-formed abnormal focal fluid collection. Follow-up CT could be performed to assess for development of pancreatic pseudocyst, if
clinically warranted.
Small right inguinal hernia containing fat and loop of unremarkable small bowel without proximal small bowel dilatation/obstruction.
Bilateral subcentimeter low-attenuation renal lesions too small to characterize.
Impression
- Acute pancreatitis, first episode,
no gallstones on CT
suspect ETOH induced
no new meds
- ETOH withdrawal
-leukocytosis
-increased CRP
-mild increased LFT's
-hypokalemia
-HTN
-prostate CA
Recommendations
- Given altered mental status not able to get MRI
- Suspect in ETOH withdrawal now and transferred to IMU for agitation
- C/w IVF
- CLD advance as tolerates with limiting factor now being mental status
GI will sign off please call for ?
Subjective
Subjective
Date of Service: October 23, 2024
He was agitated overnight and transferred to IMU. Currently not conversant. Not eating CLD due to mental status
Objective
Data Reviewed
Laboratory Data:
Laboratory Results
10/23/24 03:47
10/23/24 03:47
Laboratory Results
Magnesium 2.1 mg/dl (1.6-2.3) 10/22/24 06:09
Total Bilirubin 1.4 mg/dl (0.2-1.3) H 10/23/24 03:47
AST 46 U/L (17-59) 10/23/24 03:47
ALT 22 U/L (0-50) 10/23/24 03:47
Alkaline Phosphatase 56 U/L (38-126) 10/23/24 03:47
Lipase > 4000 U/L (23-300) H* 10/21/24 06:16
Vital Signs and I&O:
Vital Signs
Temp Pulse Resp BP Pulse Ox
100.6 F H 98 27 150/81 97
10/23/24 07:20 10/23/24 06:00 10/23/24 06:00 10/23/24 06:00 10/23/24 06:00
I&O
10/22/24 10/23/24 10/24/24
06:59 06:59 06:59
Intake Total 3420 / 3420 3060 / 3060
Output Total 575 / 575 400 / 400 325 / 325
Balance 2845 / 2845 2660 / 2660 -325 / -325
Physical Exam
Physical Exam
GEN: No acute distress sleepy arousable
HEENT: anicteric, extraocular movements intact, clear oropharynx without exudates
GI: soft, obese mildly distended, not tender to palpation, normal active bowel sounds, no hepatosplenomegaly
EXT: warm, well perfused, trace edema bilaterally
NEURO: AAOx3, non-focal
[2024-10-23] MEDS: NSS (PRESERVATIVE FREE) 0.5 ML IV (12:40)
--- NOTE | 2024-10-23 16:05 | DOWNTIME ---
There was a [employer] Numerical Control Machine Tool Operator Downtime on 10/23/2024 from 1230 to 10/23/2024 at 1550. Downtime documentation of patient's care, including medication administrations, has been reconciled in the electronic record per guidelines. Refer to the
patient's paper chart under the miscellaneous tab to see printed paper medication records and downtime forms.
--- NOTE | 2024-10-23 16:24 | PTCARENOTE ---
Addendum entered by Nery Guerrero RN 10/23/24 16:48:
Dr Corea ordered blood cultures and lactic acid levels drawn. Also ordered Vancomycin and Maxipime; await pharmacy confirmation. Instructed by Dr Corea to administer toradol for his fever and abdominal pain at this time. Patient's and
daughter in room and updated.
Original Note:
MSAS =8. Patient restless, slightly diaphoretic. Axillary temp 101.8. TT sent to Dr Corea to make him aware. Await update.
[2024-10-23] MEDS: TORADOL 15 MG IV (16:35)
[2024-10-23 17:26] LABS: Lactic Acid 1.2 mmol/L (0.7-2.0)
--- NOTE | 2024-10-23 17:54 | PHA.VAN.IN ---
Assessment
- Assessment
Renal Function: Appears similar to baseline
Maximum Temperature: 101.8 F axillary 10/23 1623
Concomitant Antimicrobials: cefepime
Plan
- Plan
Initial / Loading Dose: vanc 2000mg pending administration
Maintenance Regimen: dosing by level
Monitoring: random level 10/24 06
Pharmacokinetics Vancomycin I
- -
Patient Age: 79
Patient Sex: Female
Vancomycin Day #: 1
Indication: Gi / Intra-Abdominal
Height / Weight:
Height 6 ft 1 in
Actual Weight 85.91 kg
- Vital Signs / Lab Results
Temp Pulse Resp BP Pulse Ox
101.8 F H 101 34 166/76 96
10/23/24 16:23 10/23/24 16:00 10/23/24 16:00 10/23/24 14:00 10/23/24 16:00
Lab Results - Hematology
10/21/24 10/22/24 10/23/24
06:16 06:09 03:47
WBC 19.4 H 23.7 H 20.8 H
Lab Results - Chemistry
10/21/24 10/22/24 10/22/24
06:16 06:09 21:41
BUN 27 H 24 H 23 H
Creatinine 0.9 0.8 0.8
Estimated Creat Clear 73 82 82
Albumin 3.9 3.4 L
10/23/24
03:47
BUN 22 H
Creatinine 0.8
Estimated Creat Clear 82
Albumin 3.0 L
10/23/24
16:59
Lactic Acid 1.2
[2024-10-23] MEDS: STERILE WATER FOR INJECTION 10 ML IV (18:08)
[2024-10-23] MEDS: MAXIPIME 2000 MG IV (18:08)
[2024-10-23] MEDS: VANCOCIN 540 MG IV (18:09)
[2024-10-23] MEDS: LOVENOX 40 MG SC (18:09)
--- NOTE | 2024-10-23 18:35 | PTCARENOTE ---
Temp 98.8 axillary; currently sleeping. Blood cultures drawn. Maxipime given as ordered; vancomycin infusing at this time. Lactic acid resulted 1.2; temp 98.8 axillary.
--- NOTE | 2024-10-23 21:44 | PTCARENOTE ---
Assumed care of pt from dayshift RN. Pt is lethargic and arouses to tactile stimulation. Pt is not oriented. NSR on monitor with BBB and occasional PVCs. Pt is 94% on 2L NC. Pt is not awake enough to take oral medications. Pt has a moist productive
cough and this RN suctioned pt for thick white sputum. Oral hygiene completed utilizing suction kit. Pt resting in bed with bed alarm on, restraints in place and call aguilera in reach.
[2024-10-23] MEDS: APRESOLINE 5 MG IV (22:04)
--- NOTE | 2024-10-23 22:43 | PTCARENOTE ---
Pt's blood pressure 170/83 at start of shift and WALLPAPER SCRAPER notified. This RN was instructed to trend blood pressures and notify WALLPAPER SCRAPER is SBP is > 180. Pt's bp 197/84, hr 90 and EVERETT Scott notified. Rx received for PRN Hydralazine for SBP > 180. Medication
administered (see MAR).
--- NOTE | 2024-10-23 23:52 | PTCARENOTE ---
Current bp 155/80, hr 83. NSR on monitor. Pt asleep in bed with bed alarm on.
[2024-10-24] VITALS (30 sets, daily range): BP systolic 116–186; BP diastolic 61–115
[2024-10-24] MEDS: ATIVAN 2 MG IV (00:41)
[2024-10-24] MEDS: STERILE WATER FOR INJECTION 10 ML IV ×2 (01:02→09:57)
[2024-10-24] MEDS: MAXIPIME 2000 MG IV ×2 (01:02→09:56)
[2024-10-24] MEDS: TYLENOL/FEVERALL 650 MG RECTAL (03:24)
[2024-10-24 04:38] LABS: % Basophils 0.2 % (0-2); % Eosinophils 0.2 % (0-6); % Immature Granulocytes 0.5 % (0-0.5); % Lymphocytes 3.9 % (20.5-51.1); % Monocytes 8.6 % (1.7-9.3); % Neutrophils 86.6 % (42.2-75.2); Absolute Immature Granulocytes 0.1 10^3/uL (0-0.05); Absolute Lymphocytes 0.7 10^3/uL (1.2-3.4); Absolute Monocytes 1.6 10^3/uL (0.1-0.6); Absolute Neutrophils 15.7 10^3/uL (1.4-6.5); Hematocrit 35.3 % (39.0-52.0); Hemoglobin 12.1 g/dL (13.0-18.0); Mean Corp Hgb Conc. 34.3 g/dL (33.0-37.0); Mean Corpuscular Hgb 30.6 pg (27.0-31.0); Mean Corpuscular Volume 89.4 fL (80.0-94.0); Mean Platelet Volume 10.2 fL (7.4-10.4); Nucleated Red Blood Cells % 0 % (-); Platelet Count 194 10^3/uL (130-400); Red Blood Cell Count 3.95 10^6/uL (4.70-6.10); Red Cell Dist. Width 14.1 % (11.5-14.5); White Blood Cell Count 18.1 10^3/uL (4.8-10.8)
[2024-10-24 04:48] LABS: Vancomycin Random 10.9 ug/ml
[2024-10-24 04:57] LABS: ALT (SGPT) 23 U/L (0-50); AST (SGOT) 37 U/L (17-59); Albumin 3.2 g/dl (3.5-5.0); Alkaline Phosphatase 72 U/L (38-126); Blood Urea Nitrogen 20 mg/dl (9-20); Calcium 9.1 mg/dl (8.4-10.2); Carbon Dioxide 28 mmol/L (22-30); Chloride 108 mmol/L (98-107); Estimated Creatinine Clearance 82 ml/min; Glucose 124 mg/dl (70-99); Lipase 50 U/L (23-300); Potassium 3.3 mmol/L (3.5-5.1); Sodium 141 mmol/L (135-145); Total Bilirubin 1.6 mg/dl (0.2-1.3); Total Protein 5.8 g/dl (6.3-8.2); eGFR > 60.00
--- NOTE | 2024-10-24 07:53 | W.PN.HOSP.TC ---
Today's Communication/Plan
-
Continue antibiotics
Await cultures
Chest x-ray
Possible ICU transfer
Assessment / Plan
Assessment / Plan
Gen-agitated, confused
HEENT-NC, AT, anicteric
Neck-supple
CV-reg, systolic M, +S1/S2
Lungs-clear B/L
Abd-soft, nontender
Ext-no edema
Musculoskeletal-no cyanosis, clubbing
Skin-warm and dry
Sepsis -differential diagnosis includes acute pancreatitis versus other etiology. Blood cultures pending. Started empiric antibiotics October 23, cefepime and vancomycin. WBC count trending down. Last fever 10/23.
Check chest x-ray.
Echocardiogram performed 10/23 shows LVEF 60 to 65%, normal RV size and function, mild , thickened and calcified aortic valve with restricted leaflet motion, cannot rule out aortic valve vegetation.
Acute pancreatitis -suspect alcohol induced pancreatitis given alcohol withdrawal syndrome. No gallstones noted on CT. MRI abdomen reordered by GI service.
Unfortunately he has had no oral intake since admission due to multiple factors including acute delirium as well as n.p.o. status for MRI of the abdomen.
If we can get his delirium under control, then potentially a Dobbhoff tube can be placed to start tube feeds.
He has received 12.5 L of IV fluids so far over the first 4 days of hospitalization. Continue lactated Ringer's IV at lower rate of 80 cc/h.
Leukocytosis improving.
Bilirubin peaked at 1.9, repeat 1.6. ALT normal, mild AST elevation resolved.
Continue analgesics.
First episode of pancreatitis.
12 pound weight loss over the past 6 weeks, patient attributes to recent diagnosis of malignancy for his . Appetite did go down.
Multifactorial delirium -at this point given lack of improvement with phenobarbital and lorazepam I am not certain alcohol withdrawal is the only etiology. Suspect he may have delirium due to multiple factors including acute pancreatitis and acute
illness. Alcohol may be playing some role but unclear how much.
Phenobarbital discontinued. Will discuss with sterile proc tech feasibility of transfer to ICU for initiation of Precedex for treatment of his delirium and agitation.
Alcohol use disorder -reportedly only drinks 3 days/week.
Hypokalemia -will replete. Getting IV KCl rider now, repeat dose later today. Check magnesium, phosphate.
Hypomagnesemia -treated and improved.
Incidental right inguinal hernia -asymptomatic. Noted on CT scan. Discussed with patient and family to follow-up as outpatient.
Syncope -suspect vasovagal. Check orthostatics when more stable.
Essential hypertension -blood pressure elevated due to inability to give oral medications as well as delirium and potentially alcohol withdrawal.
history of prostate cancer
Diverticulosis
Full code
updated in person yesterday. Will keep her abreast of further developments.
Anticipated Discharge: > 48 hours
Subjective/Interval History
-
Date of Service: October 24, 2024
Patient seen and examined. Unfortunately he remains delirious, unable to converse but remains awake and agitated, trying to crawl out of bed.
Objective Data
-
Labs:
Laboratory Results
10/24/24
03:35
WBC 18.1 H
Hgb 12.1 L
Hct 35.3 L
Plt Count 194 D
Sodium 141
Potassium 3.3 L
Chloride 108 H
Carbon Dioxide 28
BUN 20
Creatinine 0.8
Glucose 124 H
Calcium 9.1
Total Bilirubin 1.6 H
AST 37
ALT 23
Alkaline Phosphatase 72
Vital Signs:
Vital Signs
Temp Pulse Resp BP Pulse Ox
99.0 F 80 20 154/76 99
10/24/24 07:25 10/24/24 06:00 10/24/24 06:00 10/24/24 06:00 10/24/24 06:00
I&O
10/23/24 10/24/2410/25/25
06:59 06:59 06:59
Intake Total 3060 / 3060
Output Total 400 / 400 525 / 525
Balance 2660 / 2660 -525 / -525
Review of Systems
-
Unable to obtain full review of systems at this time due to: Acuity
[2024-10-24] MEDS: KCL 270 MEQ IV ×2 (07:55→18:27)
[2024-10-24] MEDS: ATIVAN 1 MG IV (08:04)
[2024-10-24] MEDS: NSS (PRESERVATIVE FREE) 0.5 ML IV (08:05)
[2024-10-24 08:13] LABS: Magnesium 1.8 mg/dl (1.6-2.3); Phosphorus 1.8 mg/dl (2.5-4.5)
[2024-10-24] MEDS: LR 1000 IV ×2 (08:23→20:53)
[2024-10-24] MEDS: FOLVITE PO (08:24)
[2024-10-24] MEDS: PROTONIX IV 40 MG IV (08:24)
[2024-10-24] MEDS: THIAMINE INJECTION 200 MG IV (08:25)
--- NOTE | 2024-10-24 08:27 | PHA.VAN.FU ---
Vancomycin Assessment / Plan
- Assessment
Renal Function: Stable
WBC's are: Trending Down
Concomitant Antimicrobials: cefepime
- Assessment - Therapeutic Drug Monitoring
Random Level: 10.9 - drawn ~9.5H after after 2g load dosing
- Dosing Plan
Adjust Regimen to: Vanc 1000mg Q12H - first dose now then 1800
New Regimen Predicts: AUC (475), Peak (28.6), Trough (12.9)
- Monitoring Plan
No level(s) ordered at this time: consider levels in next few days
MRSA Screen: Ordered per protocol
- Follow Up
Pharmacy will continue to follow.
Vancomycin Follow UP
- -
Patient Age: 79
Patient Sex: Female
Vancomycin Day #: 2
Indication: Gi / Intra-Abdominal
Requesting Provider: Dr. Corea
Pertinent Antimicrobial Allergies:
NKDA
Height / Weight:
Height 6 ft 1 in
Actual Weight 85.91 kg
- Vital Signs / Lab Results
Temp Pulse Resp BP Pulse Ox
99.0 F 80 20 154/76 99
10/24/24 07:25 10/24/24 06:00 10/24/24 06:00 10/24/24 06:00 10/24/24 06:00
Lab Results - Hematology
10/22/24 10/23/24 10/24/24
06:09 03:47 03:35
WBC 23.7 H 20.8 H 18.1 H
Lab Results - Chemistry
10/22/24 10/22/24 10/23/24
06:09 21:41 03:47
BUN 24 H 23 H 22 H
Creatinine 0.8 0.8 0.8
Estimated Creat Clear 82 82 82
Albumin 3.4 L 3.0 L
10/24/24
03:35
BUN 20
Creatinine 0.8
Estimated Creat Clear 82
Albumin 3.2 L
10/23/24
16:59
Lactic Acid 1.2
Therapeutic Drug Monitoring
Random Vancomycin 10.9 ug/ml 10/24/24 03:35
[2024-10-24] MEDS: VANCOCIN 200 IV ×2 (08:43→17:17)
--- NOTE | 2024-10-24 10:50 | CON.INTV ---
Consultation
Consultation Request
Date/Time Consultation Requested: 10/24/2024 - 1007
Date/Time Consultation Performed: 10/24/2024 - 0
Requesting Provider: Dr. Corea
Performing Provider: Dr. Ji
Reason for Consultation: Agitation/Delirium
Medical History
-
Chief Complaint: Passed out
History of Present Illness:
79-year-old male with a past medical history of hypertension, depression, diverticulosis and colon polyps who presents with a syncopal episode while at [employer]. Patient was kneeling at [employer], when he had passed out. He developed epigastric pain
and had a bowel movement. Brought here to the hospital at where he had another bowel movement, but reportedly nonbloody. Patient was initially afebrile in the ER to 97.4 �F, pulse rate 65, respiratory rate 12, BP 146/56 and saturating 98% on
room air. Initial labs showed WBC 8.8, Hb 13.4, lipase >4000, troponin negative at 0.024, and urinalysis was negative for signs of UTI. CT abdomen/pelvis on 10/20/2024 showed acute pancreatitis with a small right inguinal hernia without SBO. In
the ER he was given 0.5 mg Dilaudid + Zofran, and admitted initially to telemetry for further monitoring/care. He was started on IV fluids and continue with prn Dilaudid. IV Toradol was added prn on 10/21. GI was initially consulted on 10/21 and
recommended LR at 200 cc/h while trending LFTs + lipase with eventual MRI/MRCP. His white count slowly worsened and peaked at 23.7 on 10/22, and LFTs also started to rise. On 10/23, he spiked a fever and was started on broad-spectrum antibiotics
with cefepime + IV vancomycin. He also started to become less cooperative and more restless starting on 10/22, treated with Ativan for possible alcohol withdrawal. Priyanka juarez called on the late afternoon of 10/22 and patient transferred to the IMU
for closer monitoring. Continued to be lethargic, confused and not following commands, requiring restraints with prn Ativan continuing. Given that the lethargy and agitation has continued, [employer] service is now consulted for consideration for
Precedex with transferred to ICU.
When I saw the patient, he was resting in bed, appears confused uncooperative. Patient's , Meenakshi, at bedside. Patient hypertensive to 182/78, heart rate 94, and saturating 95% on room air. He remains afebrile. All of the 's questions
were answered. According to the nurse, when patient gets Ativan he only improves for short period of time and then becomes agitated/lethargic and confused again.
PMHx: Colonic polyps, hypertension, depression, diverticulosis
PSHx: Tonsillectomy, back surgery, appendectomy
Past Medical History
Past Medical History: Other (Above as per HPI)
Past Surgical History: Other (Above as per HPI)
Social History
Tobacco: Smoker (0.5PPD - quit 15 years ago)
Alcohol: Occasional (According to patient drinks 1-2 drinks of [employer] [place] Monday through Monday)
Drug: None
Personal:
Living: With Family
Employment: Retired
Family History
Family History: Cancer (Father: Pancreatic cancer; Mother: bone cancer)
Allergies / Home Medications
Allergies
Allergy/AdvReac Type Severity Reaction Status Date / Time
No Known Allergies Allergy Verified 10/20/24 09:31
Home Medications
�Medication �Instructions �Recorded �Confirmed �Last Taken �Type
amlodipine 10 mg tablet (Norvasc) 10 mg PO DAILY Blood Pressure 10/20/24 10/20/24 10/20/24 History
glucosamine sulf dipot 1 cap PO DAILY Supplement 10/20/24 10/20/24 10/20/24 History
chlr,msm,chond 550 mg-C 30 mg-arianna
1 mg capsule (Glucosamine
Chondroitin)
ibuprofen 200 mg tablet (Advil) 400 mg PO HSPRN PRN mild pain 10/20/24 10/20/24 Unknown History
ketoconazole 2 % topical cream 1 applic topical DAILYPRN PRN scalp 10/20/24 10/20/24 Unknown History
lisinopril 20 1 tab PO DAILY Blood Pressure 10/20/24 10/20/24 10/20/24 History
mg-hydrochlorothiazide 25 mg tablet
therapeutic multivitamin 1 tab PO DAILY Supplement 10/20/24 10/20/24 10/20/24 History
Review of Systems
-
Unable to Obtain full review of systems at this time due to: Acuity
Vitals / Labs / Diagnostic Testing
Vital Signs
Temp Pulse Resp BP Pulse Ox
99.0 F 80 20 154/76 99
10/24/24 07:25 10/24/24 06:00 10/24/24 06:00 10/24/24 06:00 10/24/24 06:00
Lab Data
10/24/24 03:35
10/24/24 03:35
Diagnostic Testing:
Physical Exam
-
HEENT: Normocephalic and Anicteric
Cardiovascular: S1/S2 and Peripheral Edema (negative)
Respiratory: Wheeze (negative), Rales (negative), Rhonchi (negative) and Non-Labored Respirations
GI: Soft, Non Distended, Non Tender and Normal Bowel Sounds
Neurology: Tremors (negative) and Other (Lethargic, sometimes answering questions appropriately but is significantly confused)
Skin: Warm and Dry
General: Respiratory Distress (negative), Chills (negative), Sweats (negative) and Other (Elderly male, appears uncomfortable)
Assessment
-
Assessment: 79-year-old male with a past medical history of hypertension, depression, diverticulosis and colon polyps who presents with a syncopal episode while at [employer]. Patient was kneeling at [employer], when he had passed out. He developed
epigastric pain and had a bowel movement. Brought here to the hospital at where he had another bowel movement, but reportedly nonbloody. Patient was initially afebrile in the ER to 97.4 �F, pulse rate 65, respiratory rate 12, BP 146/56 and
saturating 98% on room air. Initial labs showed WBC 8.8, Hb 13.4, lipase >4000, troponin negative at 0.024, and urinalysis was negative for signs of UTI. CT abdomen/pelvis on 10/20/2024 showed acute pancreatitis with a small right inguinal hernia
without SBO. In the ER he was given 0.5 mg Dilaudid + Zofran, and admitted initially to telemetry for further monitoring/care. He was started on IV fluids and continue with prn Dilaudid. IV Toradol was added prn on 10/21. GI was initially
consulted on 10/21 and recommended LR at 200 cc/h while trending LFTs + lipase with eventual MRI/MRCP. His white count slowly worsened and peaked at 23.7 on 10/22, and LFTs also started to rise. On 10/23, he spiked a fever and was started on
broad-spectrum antibiotics with cefepime + IV vancomycin. He also started to become less cooperative and more restless starting on 10/22, treated with Ativan for possible alcohol withdrawal. Priyanka juarez called on the late afternoon of 10/22 and
patient transferred to the IMU for closer monitoring. Continued to be lethargic, confused and not following commands, requiring restraints with prn Ativan continuing. Given that the lethargy and agitation has continued, [employer] service is now
consulted for consideration for Precedex with transferred to ICU.
Chronic conditions [employer] CON[employer]CT WORK[employer]: Colonic polyps, hypertension, depression, diverticulosis, history of prostate cancer
Impression:
#Acute encephalopathy - DDx includes toxic-metabolic encephalopathy vs delirium vs alcohol-withdrawal (unlikely)
#Pancreatitis
#Leukocytosis likely due to pancreatitis and possibly component of reactive given his acute encephalopathy
#Acute normocytic anemia (mild)
#Hypokalemia
#Transaminitis with hyperbilirubinemia
#History of hypertension
#History of depression
#Family history of pancreatic cancer (father)
Plan:
- Appears that his acute cephalopathy has been ongoing for a few days since 10/22 and I have high suspicion this is narcotic induced from his Dilaudid + Ativan/phenobarbital that he received
- Received Dilaudid 0.5 mg in the ER and then continued with infrequent 0.5 mg Dilaudid from 10/20 until 10/23, also oxycodone 5mg x 2 doses on 10/20 + 10/21
- Since 10/22, he has received total of 12mg (IV) + 1 (PO) Ativan, and started on phenobarbital on evening of of 10/22
- Started on cefepime 10/23 but his agitation was ongoing before this was started
- Would stop all ativan now and stop dilaudid
- Will give a dose of zyprexa
- May be worth giving a trial of Flumazenil
- If mentation worsens despite being off Ativan then would check CT head, although have lower suspicion for an acute CVA given he is moving all 4 extremities
- Maintain SpO2 >90-94%
- Continue aspiration precautions given his confusion and high risk of aspiration
- Would keep NPO for now until mentation improves
- Regarding his pancreatitis, continue with IVF with LR @ 80cc/hr
- GI on board - recs appreciated
- MRCP when pt able to cooperate
- Continue IV vanc and Zosyn (changed from cefepime given 10/23 - 10/24)
- Pain control - try to use toradol first if pain med needed, and if does not work and he is refractory then use dilaudid only if absolutely needed, but given the lowest effective dose
- Trend LFTs
- Doubtful he is withdrawing from alcohol given his Hx of alcohol use per the
- DC MSAS; DC prn ativan and DC phenobarbital
- Ok to continue thiamine as this is a low risk medication
- Maintain MAP>65
- Replete electrolytes with K>4, Mg>2
- Maintain euglycemia with goal BG 140-180
- Trend H/H and transfuse if needed to keep Hb>7g/dL; keep plt>20k, unless there is concern for bleeding then keep plt>50k
- prn nebulized bronchodilators - not currently bronchospastic
- DVT ppx: LMWH
Code status: Full code
Continue with IMU level of care for now and if patient's agitation persists despite interventions above then would recommend transferring to ICU for Precedex drip while awaiting clearance of Ativan + phenobarbital
I discussed the case with the patient's , Meenakshi, and answered all of her questions.
Critical care statement: A total of 38 minutes of critical care time was provided for this patient today. This includes management of unstable vital signs, evaluation of the patient at bedside, reviewing the patient's pertinent medical records
including radiographs, microbiology, laboratory evaluations, and discussion with primary team, consultants, pharmacy, nutrition, physical therapy, case management, charge nurse, critical care nursing, and respiratory therapy.
--- NOTE | 2024-10-24 11:26 | PTCARENOTE ---
Addendum entered by Sparkle Lawson RN 10/24/24 11:33:
MSAS =8 for each Ativan dose.
Original Note:
Received this am, became restless, agitated throwing legs over the siderails despite being in wrist restraints. Condom cath was off -soakied sheets and coviedien pads. He answers some questions appropriately, in angry tone of voice. Constantly
rearranging restraints/ wires/ condom cath replaced as he wont keep pad in place and everything is soaked. So far this am- Ativan given 1mg x2 so far. HE does settle for a bit and then started up again. now at bedside- upset, updated and
awaiting transfer to ICU. ICU and Pad Extractor Tender aware.
[2024-10-24] MEDS: POTASSIUM PHOSPHATE 259.0909 MEQ IV (12:21)
[2024-10-24] MEDS: ZYPREXA 10 MG IM (12:44)
[2024-10-24] MEDS: STERILE WATER FOR INJECTION 2.1 ML IM (12:45)
[2024-10-24] MEDS: APRESOLINE 5 MG IV (13:56)
--- NOTE | 2024-10-24 14:03 | PTCARENOTE ---
IM Zyprexa given with little relief. Very tense, fighting restraints, lifting legs off the bed. Now having frequent burst of SVT up 170s- breaks within a min to ST 100-110. BP 180/110 PRN Apresoline given. Has required 1:1 for the past 2 hours.
Condom cath placed x2 this shift- however without it he writhes so much is saturated the whole bed. IVF infusing, K riders given, IV antibx via EILEEN. Dr. Corea and Dr. Ji here to eval- transfer to ICU. Report given to Edda.
[2024-10-24] MEDS: PRECEDEX 100 IV ×2 (14:34→21:13)
[2024-10-24 14:53] LABS: Glucose - Point of Care 117 mg/dl (70-99)
--- NOTE | 2024-10-24 15:02 | W.PN.UPDATE ---
Update Note
Progress Note Update
After Zyprexa given, he remained agitated and had a period of tachycardia with nonsustained VT, heart rate as high as 160s. Patient transferred to the ICU, started on Precedex drip. Restraints added. present during transfer to ICU.
--- NOTE | 2024-10-24 15:11 | W.PN.GI.CBS2 ---
Today's Communication / Plan
-
Diet limited by mental status, advance once tolerates
Mental status workup
Agree with transfer to ICU
Will follow with you
Assessment / Plan
-
79-year-old male with history of hypertension, prostrate cancer presented with acute onset abdominal pain and syncopal episode, in the ER noted to have elevated lipase suggesting pancreatitis, LFTs have been normal, gallbladder appears normal. No
previous history of pancreatitis. No recent new medication, TG 70, calcium 9.9.
10/20/24 CT Abd/Pel (IV only)-DH only
Moderate pancreatic/peripancreatic edematous changes compatible with acute pancreatitis. No accompanying discrete well-formed abnormal focal fluid collection. Follow-up CT could be performed to assess for development of pancreatic pseudocyst, if
clinically warranted.
Small right inguinal hernia containing fat and loop of unremarkable small bowel without proximal small bowel dilatation/obstruction.
Bilateral subcentimeter low-attenuation renal lesions too small to characterize.
Impression
- Acute pancreatitis, first episode,
no gallstones on CT
suspect ETOH induced
no new meds
- ETOH withdrawal
-leukocytosis
-increased CRP
-mild increased LFT's
-hypokalemia
-HTN
-prostate CA
Recommendations
- Given altered mental status not able to get MRI
- Suspect in ETOH withdrawal now and transferred to ICU today for agitation. Consider other workup for altered mental status
- C/w IVF
- CLD advance as tolerates with limiting factor now being mental status
- BC pending
Subjective
Subjective
Date of Service: October 24, 2024
Overnight and into today more agitated, transferring to ICU
Objective
Data Reviewed
Laboratory Data:
Laboratory Results
10/24/24 03:35
Laboratory Results
Phosphorus 1.8 mg/dl (2.5-4.5) L 10/24/24 03:35
Magnesium 1.8 mg/dl (1.6-2.3) 10/24/24 03:35
Total Bilirubin 1.6 mg/dl (0.2-1.3) H 10/24/24 03:35
AST 37 U/L (17-59) 10/24/24 03:35
ALT 23 U/L (0-50) 10/24/24 03:35
Alkaline Phosphatase 72 U/L (38-126) 10/24/24 03:35
Lipase 50 U/L (23-300) 10/24/24 03:35
Vital Signs and I&O:
Vital Signs
Temp Pulse Resp BP Pulse Ox
99.0 F 94 24 180/84 94
10/24/24 11:39 10/24/24 15:00 10/24/24 15:00 10/24/24 15:00 10/24/24 15:00
I&O
10/23/24 10/24/24 10/25/24
06:59 06:59 06:59
Intake Total 3060 / 3060
Output Total 400 / 400 525 / 525 400 / 400
Balance 2660 / 2660 -525 / -525 -400 / -400
Physical Exam
Physical Exam
GEN: No acute distress, sleepy but arousable
HEENT: anicteric, extraocular movements intact, clear oropharynx without exudates
GI: soft, non-distended, not tender to palpation, normal active bowel sounds, no hepatosplenomegaly
EXT: warm, well perfused, no edema bilaterally
NEURO: AAOx3, non-focal
--- NOTE | 2024-10-24 15:22 | PTCARENOTE ---
pt received from imu- oriented to self, confused, agitated/restless. precedex started as per order, pt four point restrained and mitts for agitation, protective intervention. pt sr with bbb and pvcs on monitor. 2LNC, pt with nonproductive harsh
cough. at bedside and updated, verbalized understanding to education. all safety precautions in place. full bed bath and incontinence care provided, condom cath intact.
--- NOTE | 2024-10-24 15:37 | CM ---
Patient with Hx Alcohol use disorder with Dx sepsis, pancreatitis, Multifactorial delirium. Transferred to ICU today wih acute cephalopathy. O2 2L. Receiving IVF, Precedex gtt, IV Abx. Per nurse; confused, agitated, MSAS 4 --> 8, in soft limb
restraints.
CM continuing to follow.
Plan TBD.
[2024-10-24] MEDS: LOVENOX 40 MG SC (17:15)
[2024-10-24] MEDS: ZOSYN 50 IV (17:15)
[2024-10-24 17:42] LABS: APTT 33.4 Sec (23.4-35.0); INR 1.25; PT 16.3 Sec (11.4-14.6)
[2024-10-24 17:46] LABS: Blood Urea Nitrogen 17 mg/dl (9-20); Calcium 8.3 mg/dl (8.4-10.2); Carbon Dioxide 29 mmol/L (22-30); Chloride 110 mmol/L (98-107); Estimated Creatinine Clearance 94 ml/min; Glucose 120 mg/dl (70-99); Magnesium 1.7 mg/dl (1.6-2.3); Phosphorus 2.9 mg/dl (2.5-4.5); Potassium 3.4 mmol/L (3.5-5.1); Sodium 140 mmol/L (135-145); eGFR > 60.00
[2024-10-24] MEDS: MAGNESIUM SULFATE 50 IV (18:27)
--- NOTE | 2024-10-24 22:23 | PTCARENOTE ---
Assumed care of pt at 1900. Received pt on Precedex infusion at 0.6mcg/kg/min. Pt RASS -3, minimally responsive, titrating down to achieve RASS goal. Received pt on 2LNC with SpO2 90-91%, occasionally dipping down to 88-89%, O2 increased to 4LNC and
pt maintaining SpO2 at 95%. SR/SB on monitor 50s-60s with BBB. Physical assessment as documented in nursing shift assessment flowsheet. Bed alarm activated.
[2024-10-25] VITALS (31 sets, daily range): BP systolic 138–194; BP diastolic 65–122; BMI 25.8
[2024-10-25] MEDS: ZOSYN 50 IV ×4 (00:19→18:01)
--- NOTE | 2024-10-25 00:59 | PTCARENOTE ---
Went in for midnight assessment, pt continues to be lethargic, Precedex weaned down throughout the shift (see med titration flowsheet). Pt's pupils pinpoint and pt still minimally responsive. Precedex turned off. Mouth care done, pt did awaken a
little, then when his name was called he responded, was able to open his eyes when asked, able to state his name and birthday but falls back asleep again. Pt with audible congestion in upper airways, weak cough and unable to bring up sputum, pt
suctioned both with yankauer and 14fr suction catheter, moderate amount of white sputum, Remains on 4LNC with SpO2 94-95%. SR 80s-90s with PACs and PVCs. Mitts and restraints (4 points) removed from patient. Bed alarm activated.
--- NOTE | 2024-10-25 02:19 | PTCARENOTE ---
At around 0205 pt starting to become restless and fidgety again, tachycardic (HR 110s) and tachypneic (RR mid 20s-30s). Precedex restarted at 0.2mcg/kg/min. Pt incontinent of urine, incontinence care done. Mitts reapplied as pt is attempting to pull
at things. Bed alarm activated.
[2024-10-25 03:08] LABS: IgG Subclass 4 46 mg/dL (1-123)
[2024-10-25 04:44] LABS: % Basophils 0.3 % (0-2); % Eosinophils 1.1 % (0-6); % Immature Granulocytes 0.8 % (0-0.5); % Lymphocytes 4.1 % (20.5-51.1); % Monocytes 9.8 % (1.7-9.3); % Neutrophils 83.9 % (42.2-75.2); Absolute Basophils 0.1 10^3/uL (0-0.2); Absolute Eosinophils 0.2 10^3/uL (0-0.7); Absolute Immature Granulocytes 0.1 10^3/uL (0-0.05); Absolute Lymphocytes 0.7 10^3/uL (1.2-3.4); Absolute Monocytes 1.7 10^3/uL (0.1-0.6); Absolute Neutrophils 14.5 10^3/uL (1.4-6.5); Hematocrit 32.8 % (39.0-52.0); Hemoglobin 11.4 g/dL (13.0-18.0); Mean Corp Hgb Conc. 34.8 g/dL (33.0-37.0); Mean Corpuscular Hgb 30.6 pg (27.0-31.0); Mean Corpuscular Volume 87.9 fL (80.0-94.0); Mean Platelet Volume 9.7 fL (7.4-10.4); Nucleated Red Blood Cells % 0 % (-); Platelet Count 210 10^3/uL (130-400); Red Blood Cell Count 3.73 10^6/uL (4.70-6.10); Red Cell Dist. Width 14.3 % (11.5-14.5); White Blood Cell Count 17.2 10^3/uL (4.8-10.8)
[2024-10-25 05:11] LABS: ALT (SGPT) 20 U/L (0-50); AST (SGOT) 30 U/L (17-59); Albumin 2.6 g/dl (3.5-5.0); Alkaline Phosphatase 53 U/L (38-126); Blood Urea Nitrogen 20 mg/dl (9-20); Calcium 8.6 mg/dl (8.4-10.2); Carbon Dioxide 26 mmol/L (22-30); Chloride 110 mmol/L (98-107); Estimated Creatinine Clearance 82 ml/min; Glucose 112 mg/dl (70-99); Magnesium 2.1 mg/dl (1.6-2.3); Phosphorus 2.5 mg/dl (2.5-4.5); Potassium 3.8 mmol/L (3.5-5.1); Sodium 141 mmol/L (135-145); Total Bilirubin 1.2 mg/dl (0.2-1.3); Total Protein 5.1 g/dl (6.3-8.2); eGFR > 60.00
--- NOTE | 2024-10-25 05:13 | PTCARENOTE ---
Pt grossly incontinent, incontinence care done and linens/pad changed at around 0445. Pt woke up, making confused statements but then when asked where he was he was able to say the hospital, knew the year was 2024, said he was here for pancreatitis.
Pt still slightly restless and fidgety, remains on Precedex at 0.2mcg/kg/min. Assessment otherwise unchanged.
[2024-10-25] MEDS: VANCOCIN 200 IV ×2 (07:02→18:31)
[2024-10-25] MEDS: FOLVITE PO (07:38)
--- NOTE | 2024-10-25 07:55 | W.PN.HOSP.TC ---
Addendum entered and electronically signed by Riccardo Corea DO 10/25/24 15:58:
Acute delirium as documented below
Addendum entered and electronically signed by Riccardo Corea DO 10/25/24 14:21:
Patient more awake and alert now compared to this morning. Able to converse somewhat, answer questions. Denies abdominal pain.
Off Precedex.
Discussed with nursing. Plan for abdominal MRI this afternoon at 3 PM.
Await speech therapy input then hopefully start clear liquids.
updated at the bedside. She is pleased that his mental status is improved. She stated that he looks 1000% better.
Original Note:
Today's Communication/Plan
-
Continue IV fluids
Consider placement of Dobbhoff tube, start tube feeds
Await abdominal MRI
EEG
Assessment / Plan
Assessment / Plan
Gen-somnolent but arousable, able to answer some questions
HEENT-NC, AT, anicteric
Neck-supple
CV-reg, systolic M, +S1/S2
Lungs-clear B/L
Abd-soft, nontender
Ext-no edema
Musculoskeletal-no cyanosis, clubbing, bilateral wrist restraints
Skin-warm and dry
Sepsis -differential diagnosis includes acute pancreatitis versus other etiology. Blood cultures negative so far. Started empiric antibiotics October 23, currently on Zosyn and vancomycin. WBC count trending down. Last fever 10/23.
Chest x-ray without obvious pneumonia.
Echocardiogram performed 10/23 shows LVEF 60 to 65%, normal RV size and function, mild , thickened and calcified aortic valve with restricted leaflet motion, cannot rule out aortic valve vegetation. Clinically doubt endocarditis.
Acute pancreatitis -suspect alcohol induced pancreatitis given alcohol withdrawal syndrome. No gallstones noted on CT, abdominal MRI pending. IgG4 level normal.
Unfortunately he has had no oral intake since admission due to multiple factors including acute delirium as well as n.p.o. status for MRI of the abdomen.
I would prefer to start tube feeds today as he has not had any nutrition since admission. Discussed with ICU nurse.
Continue lactated Ringer's IV fluids.
Leukocytosis improving.
Bilirubin peaked at 1.9, repeat 1.6. ALT normal, mild AST elevation resolved.
Continue analgesics.
First episode of pancreatitis.
12 pound weight loss over the past 6 weeks, patient attributes to recent diagnosis of malignancy for his . Appetite did go down.
Multifactorial delirium -at this point given lack of improvement with phenobarbital and lorazepam I am not certain alcohol withdrawal is the only etiology. Suspect he may have delirium due to multiple factors including acute pancreatitis and acute
illness. Alcohol may be playing some role but unclear how much.
Phenobarbital and lorazepam discontinued. No improvement with olanzapine.
Transferred to ICU October 24 and started on Precedex. Was briefly held overnight but subsequently resumed due to recurrence of agitation, discussed with ICU nurse.
Getting EEG this morning. Rule out subclinical seizures.
Possible alcohol use disorder -reportedly only drinks 3 days/week.
Hypokalemia -improved.
Hypophosphatemia -improved.
Hypomagnesemia -treated and improved.
Incidental right inguinal hernia -asymptomatic. Noted on CT scan. Discussed with patient and family to follow-up as outpatient.
Syncope -suspect vasovagal. Check orthostatics when more stable.
Essential hypertension -blood pressure elevated due to inability to give oral medications as well as delirium and potentially alcohol withdrawal.
history of prostate cancer
Diverticulosis
Full code
Anticipated Discharge: > 48 hours
Subjective/Interval History
-
Date of Service: October 25, 2024
Patient seen and examined. Currently in ICU, still somewhat confused but able to answer some basic questions. Somnolent but arousable.
Objective Data
-
Labs:
Laboratory Results
10/25/24
04:30
WBC 17.2 H
Hgb 11.4 L
Hct 32.8 L
Plt Count 210
Sodium 141
Potassium 3.8
Chloride 110 H
Carbon Dioxide 26
BUN 20
Creatinine 0.8
Glucose 112 H
Calcium 8.6
Total Bilirubin 1.2
AST 30
ALT 20
Alkaline Phosphatase 53
Vital Signs:
Vital Signs
Temp Pulse Resp BP Pulse Ox
99.5 F 87 26 139/122 100
10/25/24 03:27 10/25/24 06:01 10/25/24 06:01 10/25/24 06:01 10/25/24 04:00
I&O
10/24/24 10/25/24 10/26/24
06:59 06:59 06:59
Intake Total 1819.6 / 3.9 204.3 / 204.3
Output Total 525 / 525 530 / 530
Balance -525 / -525 1289.6 / 1493.9 204.3 / 204.3
Review of Systems
-
Unable to obtain full review of systems at this time due to: Acuity
--- NOTE | 2024-10-25 08:00 | PTCARENOTE ---
Rec'd pt at 0700 resting in bed sedated on Precedex at 0.4 mcg. Pt is drowsy but restless- has legs over the side of the bed. Has bilat mitts on but constantly trying to get mitts off and reach down toward his privates. When stimulated could tell me
his name and his birthday. Said he was in [place] -but in a babys room. Could tell me his wifes name but had no insight as to why he as in the hospital. Makes confusing comments. LOJA but often restlessly. Did calm once bathed and linens changed
as he was incontinent again. MSAS overall is a 2.Skin is pink wm and dry. Groin/perineum sl pink-will apply miconazole. Respirs are unlabored on 4L nc with sats of 99-100%. BS are sl decreased at the bases but pt does not take a great deep breath.
Does have a moist non-prod cough and does try to clear his throat. Monitor SR with BB confing and isolate PVC's. + pulses as documented. No edema. VS as documented. ABd soft with hypoactive BS. No c/o abd pain. Incont of a saturated amt of urine.
#25 short condom cath placed. IV Precedex infusing via LAC IV site. LR via R upper arm IV Site. Both sites wnl. Pt turned and repositioned. Complete CHG bath given. Mouth care given. EEG here currently to do EEG. Dr. Corea in to see pt.
--- NOTE | 2024-10-25 08:27 | W.PN.INTV ---
Today's Communication / Plan
Recommendations
Aspiration precautions
Requesting [employer]ERSON [employer] evaluation given his lethargic mental status and risk of aspiration
Continue Precedex drip, weaning down as tolerated
Avoid narcotics including Dilaudid, Ativan and phenobarbital and use Toradol instead and Ofirmev
If narcotics are needed then would use an oral dose in the lowest dose possible to avoid any recurrence of his significant delirium
Given that the patient remains on Precedex drip, continue ICU level of care - will consider downgrading to IMU tomorrow (10/26) if he can come off Precedex drip and remain stable with no agitation or threat to himself or others for >6-12 hours.
Assessment
-
Assessment: 79-year-old male with a past medical history of hypertension, depression, diverticulosis and colon polyps who presents with a syncopal episode while at [place]. Patient was kneeling at [facility], when he had passed out. He developed
epigastric pain and had a bowel movement. Brought here to the hospital at where he had another bowel movement, but reportedly nonbloody. Patient was initially afebrile in the ER to 97.4 �F, pulse rate 65, respiratory rate 12, BP 146/56 and
saturating 98% on room air. Initial labs showed WBC 8.8, Hb 13.4, lipase >4000, troponin negative at 0.024, and urinalysis was negative for signs of UTI. CT abdomen/pelvis on 10/20/2024 showed acute pancreatitis with a small right inguinal hernia
without SBO. In the ER he was given 0.5 mg Dilaudid + Zofran, and admitted initially to telemetry for further monitoring/care. He was started on IV fluids and continue with prn Dilaudid. IV Toradol was added prn on 10/21. GI was initially
consulted on 10/21 and recommended LR at 200 cc/h while trending LFTs + lipase with eventual MRI/MRCP. His white count slowly worsened and peaked at 23.7 on 10/22, and LFTs also started to rise. On 10/23, he spiked a fever and was started on
broad-spectrum antibiotics with cefepime + IV vancomycin. He also started to become less cooperative and more restless starting on 10/22, treated with Ativan for possible alcohol withdrawal. Priyanka juarez called on the late afternoon of 10/22 and
patient transferred to the IMU for closer monitoring. Continued to be lethargic, confused and not following commands, requiring restraints with prn Ativan continuing. Given that the lethargy and agitation has continued, Compliance Spec service is now
consulted for consideration for Precedex with transferred to ICU.
Chronic conditions HEAD HOUSEKEEPER: Colonic polyps, hypertension, depression, diverticulosis, history of prostate cancer
Impression:
#Acute encephalopathy - DDx includes toxic-metabolic encephalopathy vs delirium vs alcohol-withdrawal (unlikely)
#Acute interstitial edematous pancreatitis
#Leukocytosis likely due to pancreatitis and possibly component of reactivity given his acute encephalopathy
#Acute normocytic anemia (mild)
#Hypokalemia - now resolved
#Transaminitis with hyperbilirubinemia - resolved
#History of hypertension
#History of depression
#Family history of pancreatic cancer (father)
Plan:
- As of 10/24, it appeared that his acute cephalopathy had been ongoing for a few days since 10/22, and I have high suspicion this is medication-induced from narcotics via Dilaudid + Ativan/phenobarbital, although they were given with good intention
- Received Dilaudid 0.5 mg in the ER and then continued with infrequent 0.5 mg Dilaudid from 10/20 until 10/23, also oxycodone 5mg x 2 doses on 10/20 + 10/21
- Since 10/22, he had received total of 12mg (IV) + 1 (PO) Ativan, and started on phenobarbital on evening of of 10/22
- Started on cefepime 10/23 but his agitation was ongoing before this was started
- Stopped ativan, phenobarbital and dilaudid
- On 10/24, tried to give Zyprexa to see if this would improve his mental status and agitation however this did not help; he was transferred over to ICU on 10/24 and started on Precedex drip which he remains on currently
- If mentation worsens despite being off Ativan then would check CT head, although have lower suspicion for an acute CVA given he is moving all 4 extremities and he is increasingly becoming more 'himself' as per the
- Maintain SpO2 >90-94%
- Continue aspiration precautions given his lethargic mental status and high risk of aspiration
- [employer] eval - will defer diet to them
- Regarding his pancreatitis, continue with IVF with LR @ 80cc/hr, just need to be cautious of any signs of hypoxia as this could represent acute alveolar/interstitial edema
- GI on board - recs appreciated
- MRCP planned for today
- Continue IV vanc and Zosyn (changed from cefepime given 10/23 - 10/24)
- Pain control - try to use toradol first if pain med needed, and if does not work and he is refractory then use ofirmev, saving narcotics for extenuating circumstances. If need to give a narcotic then would give an oral dose and start at a very
low dose and monitor for response
- Trend LFTs (normal as of 10/25)
- Doubtful he is withdrawing from alcohol given his Hx of alcohol use per the
- MSAS DC'd; DC'd both prn ativan and phenobarbital as stated above
- Ok to continue thiamine as this is a low risk medication
- Maintain MAP>65
- Replete electrolytes with K>4, Mg>2
- Maintain euglycemia with goal BG 140-180
- Trend H/H and transfuse if needed to keep Hb>7g/dL; keep plt>20k, unless there is concern for bleeding then keep plt>50k
- prn nebulized bronchodilators - not currently bronchospastic
- DVT ppx: LMWH
Dr. Ji discussed the case with the patient's , Meenakshi, and answered all of her questions.
Code status: Full code
Given that the patient remains on Precedex, would continue with ICU level of care and wean off Precedex as tolerated. He likely will need to be on Precedex gtt to get the abdominal MRI. If he continues to improve and can come off Precedex drip and
remained stable for >6-12 hours, then we will plan to downgrade out of ICU back to IMU tomorrow (10/26).
Critical care statement: A total of 41 minutes of critical care time was provided for this patient today. This includes management of unstable vital signs, evaluation of the patient at bedside, reviewing the patient's pertinent medical records
including radiographs, microbiology, laboratory evaluations, and discussion with primary team, consultants, pharmacy, nutrition, physical therapy, case management, charge nurse, critical care nursing, and respiratory therapy.
Subjective Dataa
Subjective Data
Date of Service:
Date of Service: October 25, 2024
Chief Complaint: Compliance Spec Follow Up
Subjective:
Patient seen and evaluated this morning. Remains on Precedex at 0.2 mcg/kg/hr. at bedside - all questions were answered. Pt's heart rate is 88, saturating 95% with BP 152/89. LR at 80cc/hr. he is much more calmer today, still very drowsy but
he does answer my questions appropriately. He is in no acute distress.
Review of Systems
General: Other (Unobtainable due to patient's acute clinical status with lethargy)
Objective Data
Data Reviewed
Vital Signs / I&O / Oxygen:
Vital Signs
Temp Pulse Resp BP Pulse Ox
99.5 F 70 18 146/89 99
10/25/24 08:10 10/25/24 08:00 10/25/24 08:00 10/25/24 08:00 10/25/24 08:00
Intake and Output
10/24/24 10/25/24 10/26/24
06:59 06:59 06:59
Intake Total 1819.6 / 2028.2 385.8 / 385.8
Output Total 525 / 525 530 / 530
Balance -525 / -525 1289.6 / 1498.2 385.8 / 385.8
SaO2 99
Nasal Cannula flow liters per 4
minute
Physical Exam
General: Respiratory Distress (negative), Pain (Back pain, which according to he has back issues chronically), Chills (negative) and Sweats (negative)
HEENT: Normocephalic and Anicteric
Cardiovascular: S1-S2 and Peripheral Edema (negative)
Respiratory: Wheeze (negative), Crackles (negative), Rhonchi (negative) and Non-Labored Respirations
GI: Soft, Non Distended, Non Tender and Normal Bowel Sounds
Neurology: Tremors (negative), Lethargic (Lethargic but he does answer my questions appropriately but eyes remain closed and he is not engaged) and Other (Pupils 1 mm bilaterally and sluggish)
Skin: Warm, Dry, Cyanosis (negative) and Jaundice (negative)
Labs/Micro/Reports
Lab Data
10/25/24 04:30
10/25/24 04:30
Laboratory Results
10/24/24
17:22
PT 16.3 H
INR 1.25
APTT 33.4
Microbiology
10/23/24 17:47 Blood/Venous Blood Culture - Preliminary
No Growth in 24 hours- Final report to follow
10/23/24 16:59 Blood/Venous Blood Culture - Preliminary
No Growth in 24 hours- Final report to follow
--- NOTE | 2024-10-25 08:30 | PTCARENOTE ---
EEG completed per orders. Pt currently calm on the Precedex at 0.4 mcg.
[2024-10-25] MEDS: PROTONIX IV 40 MG IV (09:09)
[2024-10-25] MEDS: NSS (PRESERVATIVE FREE) 10 ML IV (09:09)
[2024-10-25] MEDS: THIAMINE INJECTION 200 MG IV (09:10)
[2024-10-25] MEDS: FOLVITE 50.2 MG IV (09:10)
--- NOTE | 2024-10-25 09:29 | PHA.VAN.FU ---
Vancomycin Assessment / Plan
- Assessment
Renal Function: Stable
WBC's are: Trending Down
In the past 24 hrs, patient has been: Afebrile
Concomitant Antimicrobials: Zosyn 3.375 gram IV q6h
- Dosing Plan
Continue: Vancomycin 1 gram IV q12h
- Monitoring Plan
Peak Level: 30 at 21:00
Trough Level: 10/26 at 05:30
Monitoring Comments: Levels ordered after 4th maintenance dose
- Follow Up
Pharmacy will continue to follow.
Vancomycin Follow UP
- -
Patient Age: 79
Patient Sex: Female
Vancomycin Day #: 3
Indication: Gi / Intra-Abdominal
Requesting Provider: Dr. Corea
Pertinent Antimicrobial Allergies:
NKDA
Height / Weight:
Height 6 ft 1 in
Actual Weight 88.8 kg
- Vital Signs / Lab Results
Temp Pulse Resp BP Pulse Ox
99.5 F 70 18 146/89 99
10/25/24 08:10 10/25/24 08:00 10/25/24 08:00 10/25/24 08:00 10/25/24 08:00
Lab Results - Hematology
10/23/24 10/24/24 10/25/24
03:47 03:35 04:30
WBC 20.8 H 18.1 H 17.2 H
Lab Results - Chemistry
10/22/24 10/23/24 10/24/24
21:41 03:47 03:35
BUN 23 H 22 H 20
Creatinine 0.8 0.8 0.8
Estimated Creat Clear 82 82 82
Albumin 3.0 L 3.2 L
10/24/24 10/25/24
17:22 04:30
BUN 17 20
Creatinine 0.7 0.8
Estimated Creat Clear 94 82
Albumin 2.6 L
10/23/24
16:59
Lactic Acid 1.2
Microbiology Results
10/23/24 17:47 Blood Culture - Preliminary
Blood/Venous No Growth in 24 hours- Final report to follow
10/23/24 16:59 Blood Culture - Preliminary
Blood/Venous No Growth in 24 hours- Final report to follow
Therapeutic Drug Monitoring
Random Vancomycin 10.9 ug/ml 10/24/24 03:35
--- NOTE | 2024-10-25 10:22 | W.PN.GI.CBS2 ---
Addendum entered and electronically signed by Luz Dias MD 10/25/24 14:08:
I saw and examined the patient.
The CLINICAL ASSISTANT PROFESSOR's note was reviewed and I agree with the note.
Comment: Pain is improving he did receive a dose of Toradol also recently. Discussed with also at bedside. He has been afebrile last fever spike was 10/23 so far sepsis workup has been unremarkable unclear if this was reactive from acute
pancreatitis doubt necrosis/abscess await MRI also has been started on empiric antibiotics with Zosyn and vancomycin. Altered mental status also seems to be improving he has been off the Precedex unclear if this was related to metabolic
encephalopathy versus from fever and sepsis versus alcohol withdrawal. he had EEG earlier today. May need CT or MRI brain and neurology consult if the altered mental status does not improve. Okay for clear liquids after the MRI.
Original Note:
Today's Communication / Plan
-
Etiology of pancreatitis unclear-- family and pt with hx ETOH use in past but recent 1 drink several day per week vs no new meds, TG/calcium normal, IGG4 46
LFT's and lipase normalized
some clearing of mentation but drowsiness with continued Precedex gtt with weaning
reviewed with nursing to trial clears-- with improvement would not proceed with DHT placement as likely will pull out
for MRI abdomen with leukocytosis recent fever and rise in CRP to follow up
will repeat CRP in AM
blood cx neg so far
family updated
Assessment / Plan
-
79-year-old male with history of hypertension, prostrate cancer presented with acute onset abdominal pain and syncopal episode, in the ER noted to have elevated lipase suggesting pancreatitis, LFTs have been normal, gallbladder appears normal. No
previous history of pancreatitis. No recent new medication, TG 70, calcium 9.9.
10/20/24 CT Abd/Pel (IV only)-DH only
Moderate pancreatic/peripancreatic edematous changes compatible with acute pancreatitis. No accompanying discrete well-formed abnormal focal fluid collection. Follow-up CT could be performed to assess for development of pancreatic pseudocyst, if
clinically warranted.
Small right inguinal hernia containing fat and loop of unremarkable small bowel without proximal small bowel dilatation/obstruction.
Bilateral subcentimeter low-attenuation renal lesions too small to characterize.
Impression
- Acute pancreatitis, first episode
no gallstones on CT
suspect ETOH induced but per pt and family only 1 drink 4 days per week
no new meds
-ppssible ETOH withdrawal with change in mental status requiring ICU transfer/precedex
-leukocytosis/fever
-increased CRP 47.6-- 225.6
-mild increased LFT's - normalized
-hypokalemia-resolved
-HTN
-prostate CA
Recommendations
Etiology of pancreatitis unclear-- family and pt with hx ETOH use in past but recent 1 drink several day per week vs no new meds, TG/calcium normal, IGG4 46
LFT's and lipase normalized
some clearing of mentation but drowsiness with continued Precedex gtt with weaning
reviewed with nursing to trial clears-- with improvement would not proceed with DHT placement as likely will pull out
for MRI abdomen with leukocytosis recent fever and rise in CRP to follow up
will repeat CRP in AM
blood cx neg so far
family updated
Subjective
Subjective
Date of Service: October 25, 2024
pt answering question but still with mitts and drowsiness and some cursing but per family not far from baseline personality, denies abdominal pain c/o back pain
Objective
Data Reviewed
Laboratory Data:
Laboratory Results
10/25/24 04:30
10/25/24 04:30
Laboratory Results
PT 16.3 Sec (11.4-14.6) H 10/24/24 17:22
INR 1.25 10/24/24 17:22
APTT 33.4 Sec (23.4-35.0) 10/24/24 17:22
Phosphorus 2.5 mg/dl (2.5-4.5) 10/25/24 04:30
Magnesium 2.1 mg/dl (1.6-2.3) 10/25/24 04:30
Total Bilirubin 1.2 mg/dl (0.2-1.3) 10/25/24 04:30
AST 30 U/L (17-59) 10/25/24 04:30
ALT 20 U/L (0-50) 10/25/24 04:30
Alkaline Phosphatase 53 U/L (38-126) 10/25/24 04:30
Lipase 50 U/L (23-300) 10/24/24 03:35
Vital Signs and I&O:
Vital Signs
Temp Pulse Resp BP Pulse Ox
99.5 F 70 18 146/89 99
10/25/24 08:10 10/25/24 08:00 10/25/24 08:00 10/25/24 08:00 10/25/24 08:00
I&O
10/24/24 10/25/24 10/26/24
06:59 06:59 06:59
Intake Total 1819.6 / 2028.2 385.8 / 385.8
Output Total 525 / 525 530 / 530
Balance -525 / -525 1289.6 / 1498.2 385.8 / 385.8
Physical Exam
Physical Exam
HEENT: Anicteric and Moist mucous membranes
Cardiology: Normal Sinus Rhythm
Pulmonary: Clear
GI: Soft, Distended (mild ) and Tender (minimal with deep palpation )
Extremities: No Edema
Neuro: Other (drowsy but oriented x 3 )
--- NOTE | 2024-10-25 10:30 | PTCARENOTE ---
Pt groggy/drowsy but arousable and conversation is becoming more appropriate. GI in and ok given for clear liquids. Given ice chips and tolerating. Pt has an underlying moist non-prod cough but no exacerbation of the cough with the ice chips. Pts
mitts removed as is in room and pt is more restless trying to get them off- per pt and -pt has chronic back pain and tends to want to readjust himself which is difficult with the mitts on. Pt has not tried to get oob since earlier today. At
1015 Precedex decreased to 0.2 mcg and will try to wean to off as tolerated. Pt does tend to get sl more restless it seems when he has to void- condom cath taken off and urinal held for pt and he voided in the urinal- thomas/yellow urine. No other
changes. at the bedside. Dr. Ji in and updated on pt.
[2024-10-25] MEDS: LR 1000 IV (11:28)
[2024-10-25] MEDS: FLUSH (NSS) 1 FLUSH IV (11:53)
[2024-10-25] MEDS: TORADOL 15 MG IV ×2 (11:53→20:58)
--- NOTE | 2024-10-25 12:00 | PTCARENOTE ---
Pt frequently trying to readjust himself as he says his lower back hurts when questioned and per his . Pt admits to 7/10 lower back pain Medicated at 1155 with Toradol 15 mg IV after updating Dr. Ji. Overall conversation has been more
appropriate. Precedex is currently at 0.2 mcg and will plan to dc at 1230 if ok.
--- NOTE | 2024-10-25 13:02 | PTCARENOTE ---
Sleeping after Toradol. Precedex dc'd as pt has been overall calm and cooperative.
--- NOTE | 2024-10-25 13:15 | EEG.RPT ---
Electroencephalogram Report
Recording
Date of EE10/25/24
Type of EEG: Routine
Length of EEG recordin minutes
Done with Video Recording: Yes
Patient Status: Inpatient
Recording Conditions: Awake and Drowsy
Hyperventilation Performed: No
Photic Stimulation Performed: Yes
Report
LESS THAN 1 HOUR EEG REPORT
LESS THAN 1 HOUR EEG INTERPRETATION:
Moderately abnormal study for age based on low amplitude even for age, due to generalized slowing demonstrated bihemispherically equally
CLINICAL CORRELATION:
Although normative values not been established for a person of this advanced age the patient�s symmetry of the background suggests that this study was suggestive of moderate bihemispheric cortical dysfunction. No epileptiform features were
demonstrated.
If concerns remain regarding epilepsy, prolonged monitoring may be of assistance.
Clinical correlation is advised.
METHODS:
A 21-channel digital electroencephalogram (EEG) was performed at the bedside in the ICU. The 10/20 international system of electrode placement was used with ECG and lateral/vertical eye movements recorded. The Jianjianyst quantitative EEG analysis
system was performed
IMPRESSION(S):
Quality of study
Fair
Background
Low amplitude
Anterior-posterior voltage gradient differentiation: Fair�poor
Delta frequency maximal background demonstrated
Sleep
Drowsiness present
Hyperventilation
Not performed
Photic Stimulation
Failed to activate the record
ECG
Normal rhythm
Abnormal Activity
None
--- NOTE | 2024-10-25 15:20 | PTCARENOTE ---
Taken to MRI for MRI of the ABdomen. Assessment is overall unchanged. Groggy but easily arousable and overall conversation is more appropriate although still will make some confused comments. Speech therapy in and cleared pt for thin clear liquids
as ordered.
--- NOTE | 2024-10-25 15:41 | PN.CDI ---
CDI
- -
CDI:
Physician Documentation Request
Admit Date: 10/20/24 14:44
Dear Doctor Nahomy,
Clinical Indicators:
Patient admitted with pancreatitis.
10/24 Patient developed sepsis; transferred to ICU for agitation/Precedex gtt.
10/25 GI PN, 'unclear if this was related to metabolic encephalopathy versus from fever and sepsis...'
10/25 PN, 'Suspect he may have delirium due to multiple factors including acute pancreatitis and acute illness.'
Addendum, 'Patient more awake and alert now compared to this morning. Able to converse somewhat,
answer questions.'
Based on the above, could you clarify the most likely etiology of the confusion/altered mental status.
Acute Metabolic Encephalopathy
Acute Delirium only
Other, please specify
Use of terms such as suspected, likely, concern for, or probable (associated with a specific diagnosis that is being evaluated, monitored, or treated as if it exists) are acceptable and can be coded in the inpatient setting, when documented at the
time of discharge.
Thank you,
ANDREW Shannon RN
CDI Specialist
available via tiger text
Please use your independent medical judgment in providing your response.
--- NOTE | 2024-10-25 15:54 | CM ---
Discharge POC: Anticipate home with no needs. Therapy [facility]
--- NOTE | 2024-10-25 16:30 | PTCARENOTE ---
[facility] and [facility]. Pt and family did not desire services.
[2024-10-25] MEDS: KCL ELIXIR 40 MEQ PO (17:06)
--- NOTE | 2024-10-25 17:10 | PTCARENOTE ---
Returned from MRI at 1640- overall tolerated procedure. Remains overall sl groggy but easily arousable. Conversation is somewhat appropriate but will make confusing comments. Knew he was in [place] but did not remember it was the hospital. RA
sats are 92-93%- continues to have a moist overall non-prod cough even when using the [employer]. VS as documented. Will update MD on BP as it has been running in the 160-170's and pt is normally on meds for BP (Norvasc and
Lisinopril/Hydrochlorothiazide). Incont of urine. SKin care given and linens changed. Ready to eat clear liquid dinner. IV LR infusing at 80 ml/hr. Call aguilera in reach and pts at the bedside.
--- NOTE | 2024-10-25 17:10 | PTCARENOTE ---
KCL 40 meq elixer given
[2024-10-25] MEDS: LOVENOX 40 MG SC (18:00)
[2024-10-25] MEDS: DESENEX/MITRAZOL/ZEASORB 1 APPLIC TOPICAL (18:00)
[2024-10-25] MEDS: VASOTEC 1.25 MG IV (18:07)
--- NOTE | 2024-10-25 18:10 | PTCARENOTE ---
Pt remains awake. Tolerated clear liquids for dinner although continues to have a very moist non-prod cough. O2 sats running 90% on RA - placed back on 1l nc with sats up to 94%. BP has been elevated in the 170's- Dr. Ji updated and Vasotec
1.25 mg IV given. Incont of urine. Esther care given. Repositioned. Family at the bedside. No other changes.
[2024-10-25] MEDS: APRESOLINE 5 MG IV (21:04)
[2024-10-25 21:28] LABS: Vancomycin Peak 20.5 ug/ml (18-26)
--- NOTE | 2024-10-25 22:11 | PTCARENOTE ---
~5021-1743: Received patient in bed drowsy but arousable to verbal commands. AAOx3 with confused speech. The patient asked for his glasses that are laying on his deck. When glasses were handed to the patient, he then stated that they were not his.
The patient is also fidgety and pulling at his left AC IV access. Patient states that it is not an IV and that he was not pulling at the site, even though he is being watched. Reoriented/directed the patient multiple times. Patient vocalized having
back pain and asked for Toradol. Plan of care for the shift and pain management plan reviewed with the patient. NSR on the monitor. Pt's on 1L/O2 nc with SpO2 at 95%. Toradol administered for pain, and Apresoline administered for SBP >160. Patient's
incontinent of urine. Pt cleansed, mouth care provided, and full linen change completed. # 21 condom catheter placed. Pt continued pulling at his gown and IV sights. Sites dressed with gauze bandage and netting placed. Bed alarm in used.
2209: Patient removed his gown, condom catheter, and gauze dressing. Swinging his legs over the railing. Oriented to self. Redirecting and reorienting provided. Pateint grabbed this RN's hand and squeezed it stating 'you are a liar and a cheater.
You are the biggest liar and cheater of them all. You all are communist trying to take over the world.' Staff in the room to assist. Reorientation continued without success. Bilateral wrist restraints placed. Patient redressed and repositioned.
CUSTOMER SERVICE VOICE, made aware.
[2024-10-26] VITALS (29 sets, daily range): BP systolic 95–171; BP diastolic 50–93; BMI 26.2
[2024-10-26] MEDS: ZOSYN 50 IV ×2 (00:20→05:25)
[2024-10-26] MEDS: APRESOLINE 10 MG IV ×3 (00:40→14:11)
--- NOTE | 2024-10-26 00:54 | PTCARENOTE ---
Patient reassessed. Remains confused and asking for a knife and scissors. Patient states that he is at home and in his bed. Oriented to self. The patient ripped off one of his restraints and is doing high legs kicks in the air. Patient is
incontinent of urine. Cleansed and linens changed. Apresoline 10 mg administered for BP 165/74. New restraints applied.Bed alarm remains in use.
[2024-10-26] MEDS: PRECEDEX 100 IV (01:42)
--- NOTE | 2024-10-26 01:58 | PTCARENOTE ---
Patient remains confused, completely naked in bed and sliding out of bed. Sinus tachy with HR 110-160 and nonsustained. RR 46. Patient continues to thrash in bed and banging his arm on the railing. pt verbalized wanting to . The patient then said
the Lord's Prayer. Reoriented and repositioned the [patient in the bed. Patient continues attempts at sliding oob and removing clothing. Precedex gtt initiated.
[2024-10-26] MEDS: LR 1000 IV (02:03)
[2024-10-26 03:50] LABS: Hematocrit 29.6 % (39.0-52.0); Hemoglobin 10.6 g/dL (13.0-18.0); Mean Corp Hgb Conc. 35.8 g/dL (33.0-37.0); Mean Corpuscular Volume 86.5 fL (80.0-94.0); Mean Platelet Volume 9.4 fL (7.4-10.4); Platelet Count 213 10^3/uL (130-400); Red Blood Cell Count 3.42 10^6/uL (4.70-6.10); Red Cell Dist. Width 14.3 % (11.5-14.5); White Blood Cell Count 14.8 10^3/uL (4.8-10.8)
[2024-10-26 04:14] LABS: ALT (SGPT) 25 U/L (0-50); AST (SGOT) 34 U/L (17-59); Albumin 2.5 g/dl (3.5-5.0); Alkaline Phosphatase 77 U/L (38-126); Blood Urea Nitrogen 20 mg/dl (9-20); Calcium 8.6 mg/dl (8.4-10.2); Carbon Dioxide 26 mmol/L (22-30); Chloride 109 mmol/L (98-107); Estimated Creatinine Clearance 82 ml/min; Glucose 153 mg/dl (70-99); Magnesium 1.9 mg/dl (1.6-2.3); Phosphorus 2.2 mg/dl (2.5-4.5); Potassium 3.3 mmol/L (3.5-5.1); Sodium 138 mmol/L (135-145); Total Bilirubin 1.3 mg/dl (0.2-1.3); Total Protein 4.9 g/dl (6.3-8.2); eGFR > 60.00
[2024-10-26 04:19] LABS: Vancomycin Trough 13.9 ug/ml (5-20)
--- NOTE | 2024-10-26 04:47 | PTCARENOTE ---
~0300: Patient is sitting on the edge of the bed, feet on the floor, and yelling to be 'let me up,' and asking for a knife for his toes. Patient is completely undressed again with bilateral wrist restraints intact but loose. Oriented to self and
cussing at staff. road worker and I were in the room encouraging the patient to lay back in bed when he grabbed this RN's crotch. When told to not grab staff again, The patient stated 'I'll do it again' as he is reaching for this RN. Other staff
members asked for assistance to place the patient back in the bed. Precedex titrated as per the protocol.
--- NOTE | 2024-10-26 04:54 | PTCARENOTE ---
Patient reassessed. RASS -2. Precedex placed on hold for BP 95/50. Arouses to verbal commands. Occasional moist cough. The patient's labs result. Deb Wayne CRNP made aware and Potassium Phosphate 40 meq IV ordered.
[2024-10-26] MEDS: POTASSIUM PHOSPHATE 259.0909 MEQ IV (05:14)
[2024-10-26] MEDS: VANCOCIN 200 IV (06:32)
--- NOTE | 2024-10-26 07:27 | PHA.VAN.FU ---
Vancomycin Assessment / Plan
- Assessment
Renal Function: Stable
WBC's are: Trending Down
In the past 24 hrs, patient has been: Afebrile
Concomitant Antimicrobials: piperacillin/tazobactam
- Assessment - Therapeutic Drug Monitoring
Extrapolated Cmax (mcg/mL): 22.2
Peak level was drawn: Appropriately (drawn ~1.4H after end of previous infusion)
Extrapolated Cmin (mcg/mL): 13.9
Trough Drawn: Appropriately
Levels were drawn: At steady state (levels drawn after 4th maintenance dose)
Calculated AUC (mcg*h/mL): 396
Calculated ke: 0.0576
Calculated half life (H): 12
Calculated Vd (L): 88 (0.98 L/kg)
Calculated Vanc CL (ml/min): 84
- Dosing Plan
Continue: Vanc 1000mg Q12H
Dosing Comments: patient may have additional accumulation
- Monitoring Plan
No level(s) ordered at this time: consider repeat levels in next few days given borderline half-life
- Follow Up
Pharmacy will continue to follow.
Vancomycin Follow UP
- -
Patient Age: 79
Patient Sex: Female
Vancomycin Day #: 4
Indication: Gi / Intra-Abdominal
Requesting Provider: Dr. Corea
Pertinent Antimicrobial Allergies:
NKDA
Height / Weight:
Height 6 ft 1 in
Actual Weight 90 kg
- Vital Signs / Lab Results
Temp Pulse Resp BP Pulse Ox
98.2 F 94 23 124/59 95
10/26/24 07:00 10/26/24 07:00 10/26/24 07:00 10/26/24 07:00 10/26/24 07:00
Lab Results - Hematology
10/24/24 10/25/24 10/26/24
03:35 04:30 03:40
WBC 18.1 H 17.2 H 14.8 H
Lab Results - Chemistry
10/24/24 10/24/24 10/25/24
03:35 17:22 04:30
BUN 20 17 20
Creatinine 0.8 0.7 0.8
Estimated Creat Clear 82 94 82
Albumin 3.2 L 2.6 L
10/26/24
03:40
BUN 20
Creatinine 0.8
Estimated Creat Clear 82
Albumin 2.5 L
10/23/24
16:59
Lactic Acid 1.2
Microbiology Results
10/23/24 17:47 Blood Culture - Preliminary
Blood/Venous No Growth in 48 hours- Final report to follow
10/23/24 16:59 Blood Culture - Preliminary
Blood/Venous No Growth in 48 hours- Final report to follow
10/24/24 08:36 MRSA Screen - Final
Nose No Methicillin Resistant Staphylococcus aureus isolated.
Therapeutic Drug Monitoring
Vancomycin Peak 20.5 ug/ml (18-26) 10/25/24 20:55
Vancomycin Trough 13.9 ug/ml (5-20) 10/26/24 03:40
Random Vancomycin 10.9 ug/ml 10/24/24 03:35
--- NOTE | 2024-10-26 08:00 | PTCARENOTE ---
bedside report received from nightshift RN. personal care provided to pt upon coming onto shift. pt considerably more confused when this RN initially came onto shift, since that time pt has improved his orientation now being able to state his name
and where he is. pt with K infusing into left ac without issue, LR and Precedex infusing into right ac without issue. soft restraints on b/l wrist present with side rails x4 for, bed low with call aguilera in reach. medications administered without
issue PO. awaiting breakfast to arrive. vitals stable. pt on RA sating 97%. pt able to self reposition within bed and is doing so. does require reorientation and redirection which he is now following (different when this Rn first came onto
shift.) PT remains on monitors. plan of care continues to be followed.
--- NOTE | 2024-10-26 08:01 | W.PN.HOSP.TC ---
Today's Communication/Plan
-
Hopefully we can reduce Precedex
Remove restraints if feasible, discussed with nursing
Try to advance diet as tolerated
PT/OT
Stop antibiotics
Assessment / Plan
Assessment / Plan
Gen-awake but not fully alert, able to interact and answer questions
HEENT-NC, AT, anicteric
Neck-supple
CV-reg, systolic M, +S1/S2
Lungs-clear B/L
Abd-soft, mild tenderness diffusely without guarding
Ext-no edema
Musculoskeletal-no cyanosis, clubbing, bilateral wrist restraints
Skin-warm and dry
Sepsis -differential diagnosis includes acute pancreatitis versus other etiology. Blood cultures negative so far. Started empiric antibiotics October 23, currently on Zosyn and vancomycin. WBC count trending down. Last fever 10/23.
Chest x-ray without obvious pneumonia.
Echocardiogram performed 10/23 shows LVEF 60 to 65%, normal RV size and function, mild , thickened and calcified aortic valve with restricted leaflet motion, cannot rule out aortic valve vegetation. Clinically doubt endocarditis.
Can discontinue further antibiotics. Discussed with GI service.
Acute pancreatitis -suspect alcohol induced pancreatitis given alcohol withdrawal syndrome. No gallstones noted on CT. MRI abdomen shows acute interstitial edematous pancreatitis, loculated elongated fluid collections anteriorly. Suboptimal exam
for evaluation of necrosis. IgG4 level normal.
Started clear liquid diet October 25, advance as tolerated. Cleared by speech therapy.
Continue lactated Ringer's IV fluids.
Leukocytosis improving.
Bilirubin peaked at 1.9, repeat 1.6. ALT normal, mild AST elevation resolved.
Continue analgesics.
First episode of pancreatitis.
12 pound weight loss over the past 6 weeks, patient attributes to recent diagnosis of malignancy for his . Appetite did go down.
Multifactorial delirium -at this point given lack of improvement with phenobarbital and lorazepam I am not certain alcohol withdrawal is the only etiology. Suspect he may have delirium due to multiple factors including acute pancreatitis and acute
illness. Alcohol may be playing some role but unclear how much. Cannot rule out underlying cognitive impairment and this will need further evaluation after recovery as an outpatient.
Phenobarbital and lorazepam discontinued. No improvement with olanzapine.
Transferred to ICU October 24 and started on Precedex. Was briefly held overnight but subsequently resumed due to recurrence of agitation, discussed with ICU nurse.
EEG completed and does not show epileptiform activity.
Possible alcohol use disorder -reportedly only drinks 3 days/week.
Hypokalemia -persists, continue repletion.
Hypophosphatemia -persists, continue repletion.
Hypomagnesemia -treated and improved.
Incidental right inguinal hernia -asymptomatic. Noted on CT scan. Discussed with patient and family to follow-up as outpatient.
Syncope -suspect vasovagal. Check orthostatics when more stable.
Essential hypertension -blood pressure elevated due to inability to give oral medications as well as delirium and potentially alcohol withdrawal.
history of prostate cancer
Diverticulosis
Full code
Anticipated Discharge: > 48 hours
Subjective/Interval History
-
Date of Service: October 26, 2024
Patient seen and examined. Oriented to hospital, month, year. Does not know why he is here. Asking to have wrist restraints removed. Looks comfortable but complaining of 10 out of 10 abdominal pain.
Objective Data
-
Labs:
Laboratory Results
10/26/24
03:40
WBC 14.8 H
Hgb 10.6 L
Hct 29.6 L
Plt Count 213
Sodium 138
Potassium 3.3 L
Chloride 109 H
Carbon Dioxide 26
BUN 20
Creatinine 0.8
Glucose 153 H
Calcium 8.6
Total Bilirubin 1.3
AST 34
ALT 25
Alkaline Phosphatase 77
Vital Signs:
Vital Signs
Temp Pulse Resp BP Pulse Ox
98.2 F 82 24 144/72 95
10/26/24 07:00 10/26/24 07:30 10/26/24 07:30 10/26/24 07:30 10/26/24 07:30
I&O
10/25/24 10/26/24 10/27/24
06:59 06:59 06:59
Intake Total 1819.6 / 2028.2 3163.1 / 3342.1 179.0 / 179.0
Output Total 530 / 530 400 / 400
Balance 1289.6 / 1498.2 2763.1 / 2942.1 179.0 / 179.0
Review of Systems
-
History Source: Patient
All other systems: Reviewed and negative
[2024-10-26] MEDS: THERAGRAN 1 TABLET PO (08:17)
--- NOTE | 2024-10-26 08:17 | W.PN.INTV ---
Today's Communication / Plan
Recommendations
Aspiration precautions
Start low fat diet
Abx DC'd - GI agrees
Required Precedex drip overnight and was stopped this morning; start Seroquel tonight (low-dose) -QTc is <500ms from today
Avoid narcotics including Dilaudid, Ativan and phenobarbital and use Toradol instead and Ofirmev
If narcotics are needed then would use an oral dose in the lowest dose possible to avoid any recurrence of his significant delirium
Continue to monitor in ICU tonight and if he remains off Precedex then will downgrade to the floors vs tele tomorrow.
Assessment
-
Assessment: 79-year-old male with a past medical history of hypertension, depression, diverticulosis and colon polyps who presents with a syncopal episode while at [employer]. Patient was kneeling at [facility], when he had passed out. He developed
epigastric pain and had a bowel movement. Brought here to the hospital at where he had another bowel movement, but reportedly nonbloody. Patient was initially afebrile in the ER to 97.4 �F, pulse rate 65, respiratory rate 12, BP 146/56 and
saturating 98% on room air. Initial labs showed WBC 8.8, Hb 13.4, lipase >4000, troponin negative at 0.024, and urinalysis was negative for signs of UTI. CT abdomen/pelvis on 10/20/2024 showed acute pancreatitis with a small right inguinal hernia
without SBO. In the ER he was given 0.5 mg Dilaudid + Zofran, and admitted initially to telemetry for further monitoring/care. He was started on IV fluids and continue with prn Dilaudid. IV Toradol was added prn on 10/21. GI was initially
consulted on 10/21 and recommended LR at 200 cc/h while trending LFTs + lipase with eventual MRI/MRCP. His white count slowly worsened and peaked at 23.7 on 10/22, and LFTs also started to rise. On 10/23, he spiked a fever and was started on
broad-spectrum antibiotics with cefepime + IV vancomycin. He also started to become less cooperative and more restless starting on 10/22, treated with Ativan for possible alcohol withdrawal. Code ann called on the late afternoon of 10/22 and
patient transferred to the IMU for closer monitoring. Continued to be lethargic, confused and not following commands, requiring restraints with prn Ativan continuing. Given that the lethargy and agitation has continued, Quick Sketch Artist service is now
consulted for consideration for Precedex with transferred to ICU.
Chronic conditions GRADES 1 6 TUTOR: Colonic polyps, hypertension, depression, diverticulosis, history of prostate cancer
Impression:
#Acute encephalopathy - now resolved - believe that he was having medication induced delirium
#Acute interstitial edematous pancreatitis
#Leukocytosis likely due to pancreatitis and possibly component of reactivity given his acute encephalopathy
#Acute normocytic anemia (mild)
#Hypokalemia
#Transaminitis with hyperbilirubinemia - resolved
#History of hypertension
#History of depression
#Family history of pancreatic cancer (father)
Plan:
- As of 10/24, it appeared that his acute cephalopathy had been ongoing for a few days since 10/22, and I have high suspicion this is medication-induced from narcotics via Dilaudid + Ativan/phenobarbital, although they were given with good intention
- Received Dilaudid 0.5 mg in the ER and then continued with infrequent 0.5 mg Dilaudid from 10/20 until 10/23, also oxycodone 5mg x 2 doses on 10/20 + 10/21
- Since 10/22, he had received total of 12mg (IV) + 1 (PO) Ativan, and started on phenobarbital on evening of of 10/22
- Started on cefepime 10/23 but his agitation was ongoing before this was started
- Stopped ativan, phenobarbital and dilaudid
- On 10/24, tried to give Zyprexa to see if this would improve his mental status and agitation however this did not help; he was transferred over to ICU on 10/24 and started on Precedex drip which he remains on currently
- As of this morning, he is markedly improved and is able to hold a conversation remain without any confusion or lethargy
- Unfortunately he did require Precedex overnight which he was weaned off of this morning.
- Will start an atypical antipsychotic at night with Seroquel 25 mg; monitor overnight in the ICU as he does have a high probability that he may need Precedex again
- Maintain SpO2 >90-94%
- Regarding his pancreatitis, he is s/p IVF
- GI on board - recs appreciated
- Abdominal MRI performed on 10/25 showed acute interstitial edematous pancreatitis with multiple fluid collections with no obvious walled off necrosis or any other necrotic regions of the pancreas
- Abx stopped today which GI agreed with; he is s/p IV vanc and Zosyn (s/p cefepime given 10/23 - 10/24)
- Pain control - try to use toradol first if pain med needed, and if does not work and he is refractory then use ofirmev, saving narcotics for extenuating circumstances. If need to give a narcotic then would give an oral dose and start at a very
low dose and monitor for response
- Trend LFTs (normal as of 10/25)
- Given the highly unlikelihood that he is an alcoholic, stop thiamine
- Maintain MAP>65
- Replete electrolytes with K>4, Mg>2
- Maintain euglycemia with goal BG 140-180
- Trend H/H and transfuse if needed to keep Hb>7g/dL; keep plt>20k, unless there is concern for bleeding then keep plt>50k
- prn nebulized bronchodilators - not currently bronchospastic
- Given patient's remarkable improvement in mental status, no longer need to check [employer] evaluation prior to starting diet
- DVT ppx: LMWH
Dr. Ji discussed the case with the patient's , Meenakshi, and answered all of her questions.
Code status: Full code
Continue to monitor in ICU tonight and if he remains off Precedex then will downgrade to the floors tomorrow.
Total time spent today was 78 minutes for this encounter. Time includes reviewing laboratory test/imaging results, reviewing pertinent medical records, obtaining and reviewing medical history, performing an appropriate exam, ordering medications,
tests and procedures. Time also includes documentation of this encounter, coordinating patient care and communicating with other healthcare professionals. Total time does not include separately billed tests performed on this date of service.
Subjective Dataa
Subjective Data
Date of Service:
Date of Service: October 26, 2024
Chief Complaint: Quick Sketch Artist Follow Up
Subjective:
Patient seen and evaluated today at bedside. Required Precedex overnight due to agitation. Patient is much more awake this morning and speaking to me with no periods of lethargy. Patient's at bedside. I asked the patient what happened
overnight with his agitation and he said that he had a dream and thought that he was trying to 'break out.' He currently denies LINDSEY, nausea, vomiting, fevers or chills.
Review of Systems
General: Other (Negative unless mentioned above)
Objective Data
Data Reviewed
Vital Signs / I&O / Oxygen:
Vital Signs
Temp Pulse Resp BP Pulse Ox
98.2 F 78 27 143/70 93
10/26/24 07:00 10/26/24 11:00 10/26/24 11:00 10/26/24 11:00 10/26/24 11:00
Intake and Output
10/25/24 10/26/24 10/27/24
06:59 06:59 06:59
Intake Total 1819.6 / 2028.2 3163.1 / 3312.1 790.6 / 790.6
Output Total 530 / 530 400 / 400 300 / 300
Balance 1289.6 / 1498.2 2763.1 / 2912.1 490.6 / 490.6
SaO2 93
Nasal Cannula flow liters per 1
minute
Physical Exam
General: Respiratory Distress (negative), Comfortable, Chills (negative) and Sweats (negative)
HEENT: Normocephalic and Anicteric
Cardiovascular: S1-S2, Murmur (AIXA heard across precordium) and Peripheral Edema (Trace lower extremity edema bilaterally)
Respiratory: Wheeze (negative), Crackles (negative), Rhonchi (negative) and Non-Labored Respirations
GI: Soft, Distended, Non Tender and Normal Bowel Sounds
Neurology: AO x 3 and Tremors (negative)
Skin: Warm, Dry, Cyanosis (negative) and Jaundice (negative)
Labs/Micro/Reports
Lab Data
10/26/24 03:40
10/26/24 03:40
Microbiology
10/23/24 17:47 Blood/Venous Blood Culture - Preliminary
No Growth in 48 hours- Final report to follow
10/23/24 16:59 Blood/Venous Blood Culture - Preliminary
No Growth in 48 hours- Final report to follow
10/24/24 08:36 Nose MRSA Screen - Final
No Methicillin Resistant Staphylococcus aureus isolated.
[2024-10-26] MEDS: ZESTRIL 20 MG PO (08:18)
[2024-10-26] MEDS: FOLVITE 1 MG PO (08:19)
[2024-10-26] MEDS: ORETIC 25 MG PO (08:19)
[2024-10-26] MEDS: PROTONIX IV 40 MG IV (08:20)
[2024-10-26] MEDS: NSS (PRESERVATIVE FREE) 10 ML IV (08:20)
[2024-10-26] MEDS: THIAMINE INJECTION 200 MG IV (08:20)
--- NOTE | 2024-10-26 11:11 | W.PN.GI.CBS2 ---
Today's Communication / Plan
-
ammonia level
may need CT head also
CLD as tolerated
DC abx
Assessment / Plan
-
79-year-old male with history of hypertension, prostrate cancer presented with acute onset abdominal pain and syncopal episode, in the ER noted to have elevated lipase suggesting pancreatitis, LFTs have been normal, gallbladder appears normal. No
previous history of pancreatitis. No recent new medication, TG 70, calcium 9.9.
10/20/24 CT Abd/Pel (IV only)-DH only
Moderate pancreatic/peripancreatic edematous changes compatible with acute pancreatitis. No accompanying discrete well-formed abnormal focal fluid collection. Follow-up CT could be performed to assess for development of pancreatic pseudocyst, if
clinically warranted.
Small right inguinal hernia containing fat and loop of unremarkable small bowel without proximal small bowel dilatation/obstruction.
Bilateral subcentimeter low-attenuation renal lesions too small to characterize.
Impression
- Acute pancreatitis, first episode
no gallstones on CT
suspect ETOH induced but per pt and family only 1 drink 4 days per week
no new meds
-ppssible ETOH withdrawal with change in mental status requiring ICU transfer/precedex
-leukocytosis/fever
-increased CRP 47.6-- 225.6
-mild increased LFT's - normalized
-hypokalemia-resolved
-HTN
-prostate CA
Recommendations
Etiology of pancreatitis unclear-- family and pt with hx ETOH use in past but recent 1 drink several day per week vs no new meds, TG/calcium normal, IGG4 46
LFT's and lipase normalized
MRI with acute fluid collection and acute pancreatitis no obvious necrosis/abscess
has been afebrile last fever spike was 10/23 so far sepsis workup has been unremarkable likely reactive from acute pancreatitis
DW Dr.Markazi schaeffer to DC abx
Altered mental status worsening again restarted on Precedex unclear if this was related to metabolic encephalopathy versus from fever and sepsis initially versus alcohol withdrawal. EEG neg for sz activity
May need CT or MRI brain and neurology consult if the altered mental status does not improve.
Will get ammonia level
Continue clear liquids was cleared by speech
Subjective
Subjective
Date of Service: October 26, 2024
still agitated and confused and was restarted on precedex
able to tolerate clears
Objective
Data Reviewed
Laboratory Data:
Laboratory Results
10/26/24 03:40
10/26/24 03:40
Laboratory Results
PT 16.3 Sec (11.4-14.6) H 10/24/24 17:22
INR 1.25 10/24/24 17:22
APTT 33.4 Sec (23.4-35.0) 10/24/24 17:22
Phosphorus 2.2 mg/dl (2.5-4.5) L 10/26/24 03:40
Magnesium 1.9 mg/dl (1.6-2.3) 10/26/24 03:40
Total Bilirubin 1.3 mg/dl (0.2-1.3) 10/26/24 03:40
AST 34 U/L (17-59) 10/26/24 03:40
ALT 25 U/L (0-50) 10/26/24 03:40
Alkaline Phosphatase 77 U/L (38-126) 10/26/24 03:40
Lipase 50 U/L (23-300) 10/24/24 03:35
Vital Signs and I&O:
Vital Signs
Temp Pulse Resp BP Pulse Ox
98.2 F 78 27 143/70 93
10/26/24 07:00 10/26/24 11:00 10/26/24 11:00 10/26/24 11:00 10/26/24 11:00
I&O
10/25/24 10/26/24 10/27/24
06:59 06:59 06:59
Intake Total 1819.6 / 2028.2 3163.1 / 3312.1 790.6 / 790.6
Output Total 530 / 530 400 / 400 300 / 300
Balance 1289.6 / 1498.2 2763.1 / 2912.1 490.6 / 490.6
10/26/23 MRI Abdomen
IMPRESSION:
No MRI evidence for cholelithiasis or choledocholithiasis.
Acute interstitial edematous pancreatitis. Loculated elongated fluid collections anterior to the pancreas compatible with acute peripancreatic fluid collections. Postcontrast sequences are significantly limited by artifact and evaluation for
pancreatic parenchymal enhancement/necrosis is suboptimal on this exam.
Small bilateral pleural effusions.
Physical Exam
Physical Exam
Cardiology: Normal Sinus Rhythm
Pulmonary: Clear
GI: Soft, Non Distended, Non Tender (hard to assess tenderness patient sedated) and Normal Bowel Sounds
--- NOTE | 2024-10-26 12:00 | PTCARENOTE ---
pt continues to wax an wane with his mentation, behavior and agitation requiring for restraints to be reapplied and Precedex drip reinitiated and adjusted. spouse arriving to bedside updated with her concerns communicated to MD Ji.
Nahomy made aware of pts condition and need for ongoing restraints/Precedex needs. pt continues to be on monitors with IVF infusing without issue. plan of care continues to be followed. awaiting MD reassessment.
[2024-10-26 12:05] LABS: Ammonia < 9 umol/L (9-30)
--- NOTE | 2024-10-26 16:00 | PTCARENOTE ---
since this morning, pts mentation and behavior have stabilized. pt reoriented to time and situation (reports amnesia of events overnight into this am). spouse continues to be at bedside interacting and catering to pt. pt no longer on Precedex
drip or in restraints. Precedex off at 1225 and restraints dcd at 1300. pt tolerating po clears and has been advanced to low fat diet for dinner. pt is awake and cooperative following direction. pt assisted x1 into bedside recliner chair with
chair alarm and air cushion without issue. has been using urinal with assistance. plan of care continues to be followed.
[2024-10-26] MEDS: LOVENOX 40 MG SC (17:05)
[2024-10-26] MEDS: TYLENOL 650 MG PO (17:09)
--- NOTE | 2024-10-26 20:06 | PTCARENOTE ---
Handoff report received from off going RN. Patient received OOB to chair. AAOx3 and able to make his needs known. The patient asked to be placed back in bed. Plan of care for the shift and scheduled medication reviewed with the patient and the
patient's spouse. Possibility of the patient sundowning reviewed with the patient's spouse. Per the spouse, the patient stated that he was dreaming last night regarding his past job experiences. Pt's spouse hopes for pt to have a good night sleep.
Patient brushed his teeth. Pt transferred back to bed x 2 person assist. Sinus rhythm on the monitor with bundle branch block. Trace pedal edema to bilateral lower extremities. Spo2 at 95% on room air. +BS. Patient declined needing to void at this
time. Bed in the lowest position. Bed alarm in place. Call aguilera and personal belongings are within reach.
[2024-10-26] MEDS: SEROQUEL 25 MG PO (21:49)
[2024-10-27] VITALS (21 sets, daily range): BP systolic 135–171; BP diastolic 54–98; PULSE 85–87; BMI 26.2
--- NOTE | 2024-10-27 00:54 | PTCARENOTE ---
Patient reassessed. VSS on the monitor. RR 17. Pt's with even chest rise. Pt's with occasional moist cough. Turning and repositioning himself. No changes from the previous assessment.
[2024-10-27 04:02] LABS: AST (SGOT) 36 U/L (17-59); Albumin 2.7 g/dl (3.5-5.0); Blood Urea Nitrogen 17 mg/dl (9-20); Carbon Dioxide 27 mmol/L (22-30); Estimated Creatinine Clearance 65 ml/min; Glucose 148 mg/dl (70-99); Phosphorus 3.5 mg/dl (2.5-4.5); Total Bilirubin 0.8 mg/dl (0.2-1.3); Total Protein 5.2 g/dl (6.3-8.2); eGFR > 60.00
[2024-10-27 04:04] LABS: Hematocrit 29.7 % (39.0-52.0); Hemoglobin 10.6 g/dL (13.0-18.0); Mean Corp Hgb Conc. 35.7 g/dL (33.0-37.0); Mean Corpuscular Volume 86.8 fL (80.0-94.0); Mean Platelet Volume 9.5 fL (7.4-10.4); Platelet Count 258 10^3/uL (130-400); Red Blood Cell Count 3.42 10^6/uL (4.70-6.10); White Blood Cell Count 14.2 10^3/uL (4.8-10.8)
[2024-10-27] MEDS: APRESOLINE 10 MG IV (04:04)
--- NOTE | 2024-10-27 04:09 | PTCARENOTE ---
Patient reassessed. Assisted the patient OOB to bedside to use the urinal x 2 person assist. Gait/stance is unsteady. Patient is disoriented to time. CHG wipes bath provided. Transferred the patient back in bed. safety measures maintained. Call aguilera
is within reach.
[2024-10-27 04:12] LABS: ALT (SGPT) 32 U/L (0-50); Alkaline Phosphatase 78 U/L (38-126); Calcium 8.7 mg/dl (8.4-10.2); Chloride 110 mmol/L (98-107); Magnesium 1.9 mg/dl (1.6-2.3); Potassium 3.3 mmol/L (3.5-5.1); Sodium 138 mmol/L (135-145)
[2024-10-27] MEDS: KCL 270 MEQ IV (04:53)
--- NOTE | 2024-10-27 04:54 | PTCARENOTE ---
Patient's potassium resulted for 3.3. OBSERVATION ASSISTANT made aware and KCL 40 meq IV ordered. Pt's asking to get up to shave. Discussed electrolyte replacement with the patient. Ordered rate for potassium chloride is 67.5 ml/hr. Patient verbalized burning at the
site. Site assessed. No redness or swelling noted. kcl rider rate decreased to 40 ml/hr, then 25 ml/hr. Patient continued verbalizing discomfort. OBSERVATION ASSISTANT made aware and kcl elixir ordered.
[2024-10-27] MEDS: KCL ELIXIR 40 MEQ PO (05:21)
[2024-10-27] MEDS: LOPRESSOR 5 MG IV (06:16)
--- NOTE | 2024-10-27 07:48 | W.PN.GI.CBS2 ---
Today's Communication / Plan
-
agree with LFD
pain resolved and mentation seems at baseline
Assessment / Plan
-
79-year-old male with history of hypertension, prostrate cancer presented with acute onset abdominal pain and syncopal episode, in the ER noted to have elevated lipase suggesting pancreatitis, LFTs have been normal, gallbladder appears normal. No
previous history of pancreatitis. No recent new medication, TG 70, calcium 9.9.
10/20/24 CT Abd/Pel (IV only)-DH only
Moderate pancreatic/peripancreatic edematous changes compatible with acute pancreatitis. No accompanying discrete well-formed abnormal focal fluid collection. Follow-up CT could be performed to assess for development of pancreatic pseudocyst, if
clinically warranted.
Small right inguinal hernia containing fat and loop of unremarkable small bowel without proximal small bowel dilatation/obstruction.
Bilateral subcentimeter low-attenuation renal lesions too small to characterize.
Impression
- Acute pancreatitis, first episode
no gallstones on CT
suspect ETOH induced but per pt and family only 1 drink 4 days per week
no new meds
-ppssible ETOH withdrawal with change in mental status requiring ICU transfer/precedex
-leukocytosis/fever
-increased CRP 47.6-- 225.6
-mild increased LFT's - normalized
-hypokalemia-resolved
-HTN
-prostate CA
Recommendations
Etiology of pancreatitis unclear-- family and pt with hx ETOH use in past but recent 1 drink several day per week vs no new meds, TG/calcium normal, IGG4 46
LFT's and lipase normalized
MRI with acute fluid collection and acute pancreatitis no obvious necrosis/abscess
has been afebrile last fever spike was 10/23 so far sepsis workup has been unremarkable likely reactive from acute pancreatitis
DW Dr.Markazi schaeffer to DC abx
Altered mental status unclear if this was related to metabolic encephalopathy versus from fever and sepsis initially versus alcohol withdrawal. EEG neg for sz activity. Mentation now seems to be at baseline
May need CT or MRI brain and neurology consult if the altered mental status does not improve.
ammonia level normal
Diet was advanced to low-fat diet
Will sign off and will be available as needed
Subjective
Subjective
Date of Service: October 27, 2024
Patient is awake and oriented! He does complain of some trembling of his fingers. He denies any abdominal pain.
Objective
Data Reviewed
Laboratory Data:
Laboratory Results
10/27/24 03:21
Laboratory Tests
10/26/24
11:45
Ammonia < 9 L
10/27/24 03:21
Laboratory Results
PT 16.3 Sec (11.4-14.6) H 10/24/24 17:22
INR 1.25 10/24/24 17:22
APTT 33.4 Sec (23.4-35.0) 10/24/24 17:22
Phosphorus 3.5 mg/dl (2.5-4.5) 10/27/24 03:21
Magnesium 1.9 mg/dl (1.6-2.3) 10/27/24 03:21
Total Bilirubin 0.8 mg/dl (0.2-1.3) 10/27/24 03:21
AST 36 U/L (17-59) 10/27/24 03:21
ALT 32 U/L (0-50) 10/27/24 03:21
Alkaline Phosphatase 78 U/L (38-126) 10/27/24 03:21
Lipase 50 U/L (23-300) 10/24/24 03:35
Vital Signs and I&O:
Vital Signs
Temp Pulse Resp BP Pulse Ox
99.2 F 78 22 170/74 92
10/27/24 07:00 10/27/24 06:16 10/27/24 06:00 10/27/24 06:16 10/27/24 06:00
I&O
10/26/24 10/27/24 10/28/24
06:59 06:59 06:59
Intake Total 3163.1 / 3312.1 2427.0 / 2427.0
Output Total 400 / 400 1250 / 1250
Balance 2763.1 / 2912.1 1177.0 / 1177.0
Physical Exam
Physical Exam
Cardiology: Normal Sinus Rhythm
Pulmonary: Clear
GI: Soft, Non Distended, Non Tender and Normal Bowel Sounds
--- NOTE | 2024-10-27 07:53 | W.PN.HOSP.TC ---
Today's Communication/Plan
-
Transfer out of ICU
Resume amlodipine
Incentive spirometry
PT/OT
Assessment / Plan
Assessment / Plan
Gen-awake, alert, oriented, NAD
HEENT-NC, AT, anicteric
Neck-supple
CV-reg, systolic M, +S1/S2
Lungs-clear B/L
Abd-soft, nondistended, nontender
Ext-no edema
Musculoskeletal-no cyanosis, clubbing
Skin-warm and dry
Sepsis -differential diagnosis includes acute pancreatitis versus other etiology. Blood cultures negative so far. Started empiric antibiotics October 23, currently on Zosyn and vancomycin. WBC count trending down. Last fever 10/23.
Chest x-ray without obvious pneumonia.
Echocardiogram performed 10/23 shows LVEF 60 to 65%, normal RV size and function, mild , thickened and calcified aortic valve with restricted leaflet motion, cannot rule out aortic valve vegetation. Clinically doubt endocarditis.
Can discontinue further antibiotics. Discussed with GI service.
Acute pancreatitis -presumably due to alcohol. Pancreatitis resolved. Now tolerating low-fat diet. IV fluids discontinued.
Leukocytosis improving. Afebrile. Cultures negative. Antibiotics discontinued.
Abdominal MRI shows acute interstitial edematous pancreatitis with loculated fluid collections. Limited exam for necrosis.
LFTs normalized.
First episode of pancreatitis.
12 pound weight loss over the past 6 weeks, patient attributes to recent diagnosis of malignancy for his . Appetite did go down.
Multifactorial delirium -resolved. Off Precedex. Off restraints. Received Seroquel 25 mg last night.
Possible alcohol use disorder -reportedly only drinks 3 days/week.
Hypokalemia -persists, continue repletion.
Hypophosphatemia -resolved.
Hypomagnesemia -treated and improved.
Incidental right inguinal hernia -asymptomatic. Noted on CT scan. Discussed with patient and family to follow-up as outpatient.
Syncope -suspect vasovagal. Check orthostatics when more stable.
Essential hypertension -lisinopril, HCTZ resumed. Will resume amlodipine.
history of prostate cancer
Diverticulosis
Full code
Transfer out of ICU
PT/OT
Anticipated Discharge: 24 - 48 hours
Subjective/Interval History
-
Date of Service: October 27, 2024
Patient seen and examined. Much more awake and alert today, answering questions. Denies abdominal pain. Complaining of cough.
Objective Data
-
Labs:
Laboratory Results
10/27/24
03:21
WBC 14.2 H
Hgb 10.6 L
Hct 29.7 L
Plt Count 258 D
Sodium 138
Potassium 3.3 L
Chloride 110 H
Carbon Dioxide 27
BUN 17
Creatinine 1.0
Glucose 148 H
Calcium 8.7
Total Bilirubin 0.8
AST 36
ALT 32
Alkaline Phosphatase 78
Vital Signs:
Vital Signs
Temp Pulse Resp BP Pulse Ox
99.2 F 78 22 170/74 92
10/27/24 07:00 10/27/24 06:16 10/27/24 06:00 10/27/24 06:16 10/27/24 06:00
I&O
10/26/24 10/27/24 10/28/24
06:59 06:59 06:59
Intake Total 3163.1 / 3312.1 2427.0 / 2427.0
Output Total 400 / 400 1250 / 1250
Balance 2763.1 / 2912.1 1177.0 / 1177.0
Review of Systems
-
History Source: Patient
All other systems: Reviewed and negative
[2024-10-27] MEDS: THERAGRAN 1 TABLET PO (08:02)
[2024-10-27] MEDS: ORETIC 25 MG PO (08:02)
[2024-10-27] MEDS: NORVASC 10 MG PO (08:02)
[2024-10-27] MEDS: ZESTRIL 20 MG PO (08:02)
[2024-10-27] MEDS: PROTONIX IV 40 MG IV (08:02)
[2024-10-27] MEDS: NSS (PRESERVATIVE FREE) 10 ML IV (08:03)
--- NOTE | 2024-10-27 13:07 | CM ---
CM reviewed pt with Dr hawkins- [facility] tomorrow
SNF recs by therapy
Bedside meeting with pt and spouse
They are in agreement woth plan for SNF on dc- PAC provided and reviewed
PASRR completed and referrals sent via [facility] is 1st choice
Pt has Medicare Part A only
Has secondary insurance through gov benefits/[facility]
Will likely need SNF auth through the [facility] plan
Discharge Disposition- SNF pending auth
[2024-10-27] MEDS: MUCINEX 600 MG PO ×2 (13:35→20:36)
--- NOTE | 2024-10-27 13:44 | W.PN.INTV ---
Today's Communication / Plan
Recommendations
Aspiration precautions
Continue low fat diet
Abx DC'd
Continue Seroquel 25 mg which should be continued while in the hospital/rehab, and then once he is finally back into his home that he can gradually discontinue it
Avoid narcotics including Dilaudid, Ativan and phenobarbital and use Toradol instead and Ofirmev
If narcotics are needed then would use an oral dose in the lowest dose possible to avoid any recurrence of his significant delirium
Patient stable for downgrade out of ICU to the [facility]. No additional recommendations at this time. Stock Preparer/Pulmonary service will now sign off. Please reconsult if there are any additional questions/concerns, or if patient's respiratory
status deteriorates.
Assessment
-
Assessment: 79-year-old male with a past medical history of hypertension, depression, diverticulosis and colon polyps who presents with a syncopal episode while at [employer]. Patient was kneeling at [facility], when he had passed out. He developed
epigastric pain and had a bowel movement. Brought here to the hospital at where he had another bowel movement, but reportedly nonbloody. Patient was initially afebrile in the ER to 97.4 �F, pulse rate 65, respiratory rate 12, BP 146/56 and
saturating 98% on room air. Initial labs showed WBC 8.8, Hb 13.4, lipase >4000, troponin negative at 0.024, and urinalysis was negative for signs of UTI. CT abdomen/pelvis on 10/20/2024 showed acute pancreatitis with a small right inguinal hernia
without SBO. In the ER he was given 0.5 mg Dilaudid + Zofran, and admitted initially to telemetry for further monitoring/care. He was started on IV fluids and continue with prn Dilaudid. IV Toradol was added prn on 10/21. GI was initially
consulted on 10/21 and recommended LR at 200 cc/h while trending LFTs + lipase with eventual MRI/MRCP. His white count slowly worsened and peaked at 23.7 on 10/22, and LFTs also started to rise. On 10/23, he spiked a fever and was started on
broad-spectrum antibiotics with cefepime + IV vancomycin. He also started to become less cooperative and more restless starting on 10/22, treated with Ativan for possible alcohol withdrawal. Priyanka juarez called on the late afternoon of 10/22 and
patient transferred to the IMU for closer monitoring. Continued to be lethargic, confused and not following commands, requiring restraints with prn Ativan continuing. Given that the lethargy and agitation has continued, Stock Preparer service is now
consulted for consideration for Precedex with transferred to ICU.
Chronic conditions BUTCHER HEAD: Colonic polyps, hypertension, depression, diverticulosis, history of prostate cancer
Impression:
#Acute encephalopathy - now resolved - believe that he was having medication induced delirium
#Acute interstitial edematous pancreatitis
#Leukocytosis likely due to pancreatitis and possibly component of reactivity given his acute encephalopathy
#Acute normocytic anemia (mild)
#Hypokalemia
#Transaminitis with hyperbilirubinemia - resolved
#History of hypertension
#History of depression
#Family history of pancreatic cancer (father)
Plan:
- As of 10/24, it appeared that his acute encephalopathy had been ongoing for a few days since 10/22, and I have high suspicion this is medication-induced from narcotics via Dilaudid + Ativan/phenobarbital, although they were given with good intention
- Received Dilaudid 0.5 mg in the ER and then continued with infrequent 0.5 mg Dilaudid from 10/20 until 10/23, also oxycodone 5mg x 2 doses on 10/20 + 10/21
- Since 10/22, he had received total of 12mg (IV) + 1 (PO) Ativan, and started on phenobarbital on evening of of 10/22
- Started on cefepime 10/23 but his agitation was ongoing before this was started
- Stopped ativan, phenobarbital and dilaudid
- On 10/24, tried to give Zyprexa to see if this would improve his mental status and agitation however this did not help; he was transferred over to ICU on 10/24 and started on Precedex drip which he remains on currently
- As of AM of 10/26, he had markedly improved and was able to hold a conversation remain without any confusion or lethargy
- Unfortunately he did require Precedex the night prior into yesterday AM which was weaned off later yesterday morning.
- Pt was given Seroquel 25 mg last night and he responded well to this.. Will continue with Seroquel for now and I told the patient/ that he should continue this while he is in the hospital as well as if he ends up going to rehab, and then
once he is finally back into his home that he can gradually discontinue it at that time
- Maintain SpO2 >90-94%
- Regarding his pancreatitis, he is s/p IVF
- GI on board - recs appreciated
- Abdominal MRI performed on 10/25 showed acute interstitial edematous pancreatitis with multiple fluid collections with no obvious walled off necrosis or any other necrotic regions of the pancreas
- Abx stopped yesterday which GI agreed with; he is s/p IV vanc and Zosyn (s/p cefepime given 10/23 - 10/24)
- Pain control - try to use toradol first if pain med needed, and if does not work and he is refractory then use ofirmev, saving narcotics for extenuating circumstances. If need to give a narcotic then would give an oral dose and start at a very
low dose and monitor for response
- Trend LFTs (normal as of 10/25)
- Given the highly unlikelihood that he is an alcoholic, thiamine DC'd
- Maintain MAP>65
- Replete electrolytes with K>4, Mg>2
- Maintain euglycemia with goal BG 140-180
- Trend H/H and transfuse if needed to keep Hb>7g/dL; keep plt>20k, unless there is concern for bleeding then keep plt>50k
- prn nebulized bronchodilators - not currently bronchospastic
- Given patient's remarkable improvement in mental status, no longer need to check RE EXAMINER evaluation prior to starting diet
- DVT ppx: LMWH
Dr. Ji discussed the case with the patient's , Meenakshi, and answered all of her questions.
Code status: Full code
Patient stable for downgrade out of ICU to the [facility]. No additional recommendations at this time. Stock Preparer/Pulmonary service will now sign off. Thank you for allowing us to be involved in the care of this patient. Please reconsult if there
are any additional questions/concerns, or if patient's respiratory status deteriorates.
Total time spent today was 28 minutes for this encounter. Time includes reviewing laboratory test/imaging results, reviewing pertinent medical records, obtaining and reviewing medical history, performing an appropriate exam, ordering medications,
tests and procedures. Time also includes documentation of this encounter, coordinating patient care and communicating with other healthcare professionals. Total time does not include separately billed tests performed on this date of service.
Subjective Dataa
Subjective Data
Date of Service:
Date of Service: October 27, 2024
Chief Complaint: Stock Preparer Follow Up
Subjective:
Patient seen and evaluated this morning. Patient given Seroquel overnight and did not need to be resumed on Precedex. He also did not feel lethargic this morning or sleepy. at bedside and I answered all of her questions. Patient feels well,
denying chest pain, LINDSEY, nausea, fevers or chills. Occasionally has abdominal discomfort.
Review of Systems
General: Other (Negative unless mentioned above)
Objective Data
Data Reviewed
Vital Signs / I&O / Oxygen:
Vital Signs
Temp Pulse Resp BP Pulse Ox
99.1 F 88 19 167/72 93
10/27/24 12:00 10/27/24 13:00 10/27/24 13:00 10/27/24 13:00 10/27/24 07:00
Intake and Output
10/26/24 10/27/24 10/28/24
06:59 06:59 06:59
Intake Total 3163.1 / 3312.1 2427.0 / 2427.0
Output Total 400 / 400 1250 / 1250 550 / 550
Balance 2763.1 / 2912.1 1177.0 / 1177.0 -550 / -550
SaO2 93
Nasal Cannula flow liters per 1
minute
Physical Exam
General: Respiratory Distress (negative), Comfortable, Chills (negative) and Sweats (negative)
HEENT: Normocephalic and Anicteric
Cardiovascular: S1-S2, Murmur (AIXA heard across precordium) and Peripheral Edema (Trace lower extremity edema bilaterally)
Respiratory: Wheeze (negative), Crackles (negative), Rhonchi (negative) and Non-Labored Respirations
GI: Soft, Distended, Non Tender and Normal Bowel Sounds
Neurology: AO x 3 and Tremors (negative)
Skin: Warm, Dry, Cyanosis (negative) and Jaundice (negative)
Labs/Micro/Reports
Lab Data
10/27/24 03:21
10/27/24 03:21
Microbiology
10/23/24 17:47 Blood/Venous Blood Culture - Preliminary
No Growth in 72 hours- Final report to follow
10/23/24 16:59 Blood/Venous Blood Culture - Preliminary
No Growth in 72 hours- Final report to follow
10/24/24 08:36 Nose MRSA Screen - Final
No Methicillin Resistant Staphylococcus aureus isolated.
--- NOTE | 2024-10-27 14:00 | PTCARENOTE ---
patient transferred from ICU via w/c, denies pain, assist x1, gait steady but impulsive, bed/chair alarm applied for safety, vss, oriented to new room and call aguilera, at bedside, will continue to monitor.
[2024-10-27] MEDS: LOVENOX 40 MG SC (17:10)
[2024-10-27] MEDS: SEROQUEL 25 MG PO (22:13)
[2024-10-28 06:00] VITALS: BMI 26.1
[2024-10-28 07:25] LABS: Blood Urea Nitrogen 16 mg/dl (9-20); Calcium 8.8 mg/dl (8.4-10.2); Carbon Dioxide 27 mmol/L (22-30); Chloride 107 mmol/L (98-107); Estimated Creatinine Clearance 65 ml/min; Glucose 151 mg/dl (70-99); Potassium 3.5 mmol/L (3.5-5.1); Sodium 138 mmol/L (135-145); eGFR > 60.00
[2024-10-28 08:10] VITALS: BP 164/65
[2024-10-28] MEDS: NSS (PRESERVATIVE FREE) IV (08:34)
[2024-10-28] MEDS: NORVASC 10 MG PO (09:05)
[2024-10-28] MEDS: THERAGRAN 1 TABLET PO (09:05)
[2024-10-28] MEDS: MUCINEX 600 MG PO ×2 (09:05→19:42)
[2024-10-28] MEDS: ZESTRIL 20 MG PO (09:06)
[2024-10-28] MEDS: ORETIC 25 MG PO (09:06)
[2024-10-28 15:17] VITALS: BP 168/74
--- NOTE | 2024-10-28 15:34 | CM ---
CM met with Pk and his at bedside. Pt requesting SNF transfer. Referrals sent to multiple facilities; [facility] and [facility] requested, however unable to offer a bed. [facility] requested and able to accomodate for transfer today.
Pt's will transport him to [facility] when ready for discharge.
Christopher Giron Report: [phone]
[employer]
--- NOTE | 2024-10-28 17:11 | W.PN.HOSP.TC ---
Today's Communication/Plan
-
CBC
Follow temperature
Chest x-ray
Assessment / Plan
Assessment / Plan
CVS: S1-S2 normal
Chest: CTA B/L
Abdomen: Soft, NT / Bowel sounds present
Extremities: No edema, normal pulses
#Sepsis -differential diagnosis includes acute pancreatitis versus other etiology.
Blood cultures negative so far. Started empiric antibiotics October 23, currently on Zosyn and vancomycin. WBC count trending down.
Chest x-ray without obvious pneumonia.
Echocardiogram performed 10/23 shows LVEF 60 to 65%, normal RV size and function, mild , thickened and calcified aortic valve with restricted leaflet motion, cannot rule out aortic valve vegetation. Clinically doubt endocarditis.
Temperature of 100.5 today. Check chest x-ray.
#Acute pancreatitis -presumably due to alcohol.
Pancreatitis resolved. Now tolerating low-fat diet.
Leukocytosis improving. Afebrile. Cultures negative. Antibiotics discontinued.
Abdominal MRI shows acute interstitial edematous pancreatitis with loculated fluid collections. Limited exam for necrosis.
LFTs normalized.
First episode of pancreatitis.
12 pound weight loss over the past 6 weeks, patient attributes to recent diagnosis of malignancy for his . Appetite did go down.
#Multifactorial delirium -resolved. Off Precedex. Off restraints. Received Seroquel 25 mg last night.
#Alcohol use -reportedly only drinks 3 days/week.
# Hyperglycemia-check hemoglobin A1c
#Hypokalemia -Resolved
#Hypophosphatemia -resolved.
#Hypomagnesemia -treated and improved.
#Incidental right inguinal hernia -asymptomatic. Noted on CT scan. Discussed with patient and family to follow-up as outpatient.
#Syncope -suspect vasovagal.
#Essential hypertension -lisinopril, HCTZ , Amlodipine.
#History of prostate cancer
#Diverticulosis
#Full code
Discussed with nursing
Discussed with at bedside
Anticipated Discharge: Within 24 hours
Subjective/Interval History
-
Date of Service: October 28, 2024
Objective Data
-
Labs:
Laboratory Results
10/28/24
06:36
Sodium 138
Potassium 3.5
Chloride 107
Carbon Dioxide 27
BUN 16
Creatinine 1.0
Glucose 151 H
Calcium 8.8
Vital Signs:
Vital Signs
Temp Pulse Resp BP Pulse Ox
100 F 76 14 168/74 94
10/28/24 15:45 10/28/24 15:17 10/28/24 15:17 10/28/24 15:17 10/28/24 15:17
I&O
10/27/24 10/28/24 10/29/24
06:59 06:59 06:59
Intake Total 2427.0 / 2427.0 660 / 660
Output Total 1250 / 1250 1200 / 1200
Balance 1177.0 / 1177.0 -540 / -540
[2024-10-28] MEDS: LOVENOX 40 MG SC (18:04)
[2024-10-28 18:12] LABS: Hemoglobin 10.8 g/dL (13.0-18.0); Mean Corp Hgb Conc. 34.8 g/dL (33.0-37.0); Mean Corpuscular Hgb 30.8 pg (27.0-31.0); Mean Corpuscular Volume 88.3 fL (80.0-94.0); Mean Platelet Volume 8.9 fL (7.4-10.4); Platelet Count 298 10^3/uL (130-400); Red Blood Cell Count 3.51 10^6/uL (4.70-6.10); Red Cell Dist. Width 14.9 % (11.5-14.5); White Blood Cell Count 14.5 10^3/uL (4.8-10.8)
[2024-10-28 18:28] LABS: COVID-19 Antigen Negative (Negative)
[2024-10-28] MEDS: SEROQUEL 25 MG PO (21:38)
[2024-10-28 23:00] VITALS: BP 165/79
[2024-10-29 05:12] VITALS: BMI 25.8
[2024-10-29 07:14] LABS: Blood Urea Nitrogen 15 mg/dl (9-20); Calcium 8.8 mg/dl (8.4-10.2); Carbon Dioxide 27 mmol/L (22-30); Chloride 105 mmol/L (98-107); Estimated Creatinine Clearance 73 ml/min; Glucose 165 mg/dl (70-99); Potassium 3.3 mmol/L (3.5-5.1); Sodium 135 mmol/L (135-145); eGFR > 60.00
[2024-10-29 07:33] VITALS: BP 157/76
[2024-10-29] MEDS: ORETIC 25 MG PO (08:33)
[2024-10-29] MEDS: NORVASC 10 MG PO (08:33)
[2024-10-29] MEDS: MUCINEX 600 MG PO (08:33)
[2024-10-29] MEDS: ZESTRIL 20 MG PO (08:34)
[2024-10-29] MEDS: THERAGRAN 1 TABLET PO (08:34)
[2024-10-29] MEDS: NSS (PRESERVATIVE FREE) IV (08:35)
[2024-10-29 09:27] LABS: Glycohemoglobin (HgbA1c) 5.8 % (4.0-5.6)
[2024-10-29] MEDS: KCL 40 MEQ PO (10:13)
--- NOTE | 2024-10-29 10:56 | CM ---
Addendum entered by Heidi Ledesma 10/29/24 13:24:
Plan: [facility] today, spouse will transport
Report: [phone]

Original Note:
Patient seen bedside.
Elevated temp yesterday, await medical stability for transfer.
[facility] checking for bed availability, awit TCB.
IMM completed.
Spouse will transport.
Plan: [facility] once medically cleared and bed available.
[2024-10-29 11:52] VITALS: BP 163/83; BP 184/84; PULSE 80; O2SAT 97
[2024-10-29] MEDS: AUGMENTIN 875 MG/125 MG 1 TABLET PO (13:43)
--- NOTE | 2024-10-29 15:02 | W.PN.HOSP.TC ---
Today's Communication/Plan
-
Discharge
Assessment / Plan
Assessment / Plan
CVS: S1-S2 normal
Chest: CTA B/L
Abdomen: Soft, NT / Bowel sounds present
Extremities: No edema, normal pulses
#Sepsis -differential diagnosis includes acute pancreatitis versus other etiology.
Blood cultures negative so far. Started empiric antibiotics October 23, currently on Zosyn and vancomycin. WBC count trending down.
Chest x-ray unclear he has pneumonia from aspiration versus atelectasis. With productive cough I will add short course of antibiotics Augmentin started.
Echocardiogram performed 10/23 shows LVEF 60 to 65%, normal RV size and function, mild , thickened and calcified aortic valve with restricted leaflet motion, cannot rule out aortic valve vegetation. Clinically doubt endocarditis.
#Acute pancreatitis -presumably due to alcohol.
Pancreatitis resolved. Now tolerating low-fat diet.
Leukocytosis improving. Afebrile. Cultures negative. Antibiotics discontinued.
Abdominal MRI shows acute interstitial edematous pancreatitis with loculated fluid collections. Limited exam for necrosis.
LFTs normalized.
First episode of pancreatitis.
12 pound weight loss over the past 6 weeks, patient attributes to recent diagnosis of malignancy for his . Appetite did go down.
#Multifactorial delirium -resolved. Off Precedex. Off restraints. Received Seroquel 25 mg
#Alcohol use -reportedly only drinks 3 days/week.
# Hyperglycemia-check hemoglobin A1c
#Hypokalemia -Resolved
#Hypophosphatemia -resolved.
#Hypomagnesemia -treated and improved.
#Incidental right inguinal hernia -asymptomatic. Noted on CT scan. Discussed with patient and family to follow-up as outpatient.
#Syncope -suspect vasovagal.
#Essential hypertension -lisinopril, HCTZ , Amlodipine.
#History of prostate cancer
#Diverticulosis
#Full code
Discussed with nursing
Discussed with at bedside
Discussed with case management
No more fevers in the past 24 hours, will discharge on a short course of Augmentin
More than 30 minutes spent in discharge including
Final examination of the patient
Summarizing hospital stay
Instructions for continuing care to all relevant caregivers
Preparation of discharge records, prescriptions, and referral forms
Total time spent (in minutes): 35 min
Anticipated Discharge: Today
Subjective/Interval History
-
Date of Service: October 29, 2024
Objective Data
-
Labs:
Laboratory Results
10/29/24
06:37
Sodium 135
Potassium 3.3 L
Chloride 105
Carbon Dioxide 27
BUN 15
Creatinine 0.9
Glucose 165 H
Calcium 8.8
Vital Signs:
Vital Signs
Temp Pulse Resp BP Pulse Ox
98.7 F 88 14 157/76 96
10/29/24 07:33 10/29/24 07:33 10/29/24 07:33 10/29/24 08:34 10/29/24 08:30
I&O
10/28/24 10/29/24 10/30/24
06:59 06:59 06:59
Intake Total 660 / 660 2100 / 2100
Output Total 1200 / 1200 375 / 375
Balance -540 / -540 1725 / 1725
--- NOTE | 2024-10-29 15:07 | W.DS.TRANS ---
Addendum entered and electronically signed by Rose Justice MD 10/29/24 17:27:
Dictation- [id number]
Original Note:
DC Summary - [employer] Drafter
-
Discharge Instructions:
Discharge Diagnosis/Procedures Acute pancreatitis
Possible basal pneumonia
Multifactorial delirium
Hypokalemia, hypomagnesemia, hypophosphatemia
Right inguinal hernia
Hypertension
History of prostate cancer
Diverticulosis
Diet Low Fat
Activity As tolerated,With assistance
Others Tests Chest x-ray 6 weeks
Other Services PT,OT
Instructions:
Stand-Alone Forms:
Changes to Home Medications: Yes
Discharge Medications:
DC Medications w/original date entered in [facility]
amlodipine 10 mg tablet (Norvasc) 10 mg PO DAILY Blood Pressure 10/20/24
glucosamine sulf dipot chlr,msm,chond 550 mg-C 30 mg-arianna 1 mg capsule (Glucosamine Chondroitin) 1 cap PO DAILY Supplement 10/20/24
ketoconazole 2 % topical cream 1 applic topical DAILYPRN PRN scalp 10/20/24
lisinopril 20 mg-hydrochlorothiazide 25 mg tablet 1 tab PO DAILY Blood Pressure 10/20/24
therapeutic multivitamin 1 tab PO DAILY Supplement 10/20/24
amoxicillin 875 mg-potassium clavulanate 125 mg tablet 1 tab PO Q12 Lung/breathing issues #0 tabs 10/29/24
guaifenesin 600 mg tablet, extended release 12 hr 600 mg PO Q12 Cough #0 tabs 10/29/24
quetiapine 25 mg tablet 25 mg PO HS Sleep #0 tabs 10/29/24
Home Medication Changes
new
amoxicillin 875 mg-potassium clavulanate 125 mg tablet 1 tab PO Q12 Lung/breathing issues #0 tabs 10/29/24
guaifenesin 600 mg tablet, extended release 12 hr 600 mg PO Q12 Cough #0 tabs 10/29/24
quetiapine 25 mg tablet 25 mg PO HS Sleep #0 tabs
Pending Results: No
[2024-10-29 15:15] VITALS: BP 148/80
== END 2024-10-29 15:47 | DRG 438 ==
LOC: 3 WEST ACU 14:44
PROVIDERS: Hospitalist; Internal Medicine Gastroenterology; Nurse Practitioner Adult Health; Nurse Practitioner Family; ADMITTING PHYSICIAN Hospitalist; CONSULT PHYSICIAN Internal Medicine Gastroenterology; EMERGENCY PHYSICIAN Emergency Medicine; FAMILY PHYSICIAN Family Medicine; OTHER PHYSICIAN Internal Medicine Critical Care Medicine
DX: K85.20 Alcohol induced acute pancreatitis without necrosis or infection (principal); J69.0 Pneumonitis due to inhalation of food and vomit; R17 Unspecified jaundice; F10.931 Alcohol use, unspecified with withdrawal delirium; E87.6 Hypokalemia; E83.42 Hypomagnesemia; E83.39 Other disorders of phosphorus metabolism; K40.90 Unilateral inguinal hernia, without obstruction or gangrene, not specified as recurrent; I10 Essential (primary) hypertension; Z85.46 Personal history of malignant neoplasm of prostate; K57.30 Diverticulosis of large intestine without perforation or abscess without bleeding; Z87.891 Personal history of nicotine dependence; Z82.49 Family history of ischemic heart disease and other diseases of the circulatory system; Z80.0 Family history of malignant neoplasm of digestive organs; Z80.8 Family history of malignant neoplasm of other organs or systems; R73.9 Hyperglycemia, unspecified; D64.9 Anemia, unspecified; F32.A Depression, unspecified; I45.10 Unspecified right bundle-branch block; K63.5 Polyp of colon; Z86.0100 Personal history of colon polyps, unspecified; Z11.52 Encounter for screening for COVID-19
CPT/HCPCS: 71045; 71046; 74177; 74183; 80048; 80053; 80202; 81003; 81015; 82140; 82787; 82962; 83036; 83605; 83690; 83735; 84100; 84478; 84484; 85025; 85027; 85610; 85730; 86140; 87040; 87070; 87811; 92610; 93005; 93306; 94760; 95816; 96361; 96374; 96375; 97110; 97116; 97163; 97167; 99285; J2358; Q9967

== ENCOUNTER → 2024-11-01 11:22 | Outpatient (REF) | payer OTHER, MEDICARE, SELFPAY ==
[2024-11-01 12:29] LABS: % Basophils 0.4 % (0-2); % Eosinophils 1.1 % (0-6); % Immature Granulocytes 2.9 % (0-0.5); % Lymphocytes 10.9 % (20.5-51.1); % Monocytes 7.1 % (1.7-9.3); % Neutrophils 77.6 % (42.2-75.2); Absolute Basophils 0.1 10^3/uL (0-0.2); Absolute Eosinophils 0.2 10^3/uL (0-0.7); Absolute Immature Granulocytes 0.4 10^3/uL (0-0.05); Absolute Lymphocytes 1.7 10^3/uL (1.2-3.4); Absolute Monocytes 1.1 10^3/uL (0.1-0.6); Absolute Neutrophils 11.8 10^3/uL (1.4-6.5); Hematocrit 29.4 % (39.0-52.0); Hemoglobin 9.9 g/dL (13.0-18.0); Mean Corp Hgb Conc. 33.7 g/dL (33.0-37.0); Mean Corpuscular Hgb 30.2 pg (27.0-31.0); Mean Corpuscular Volume 89.6 fL (80.0-94.0); Nucleated Red Blood Cells % 0 % (-); Platelet Count 351 10^3/uL (130-400); Red Blood Cell Count 3.28 10^6/uL (4.70-6.10); Red Cell Dist. Width 14.3 % (11.5-14.5); White Blood Cell Count 15.2 10^3/uL (4.8-10.8)
[2024-11-01 13:13] LABS: Blood Urea Nitrogen 18 mg/dl (9-20); Carbon Dioxide 26 mmol/L (22-30); Chloride 105 mmol/L (98-107); Glucose 154 mg/dl (70-99); Potassium 3.5 mmol/L (3.5-5.1); Sodium 136 mmol/L (135-145); eGFR > 60.00
== END ==
LOC: OLABP 11:22
PROVIDERS: ATTENDING PHYSICIAN Family Medicine
DX: E83.42 Hypomagnesemia (principal); A41.9 Sepsis, unspecified organism; K85.91 Acute pancreatitis with uninfected necrosis, unspecified; E87.6 Hypokalemia; I10 Essential (primary) hypertension; F10.931 Alcohol use, unspecified with withdrawal delirium; K57.90 Diverticulosis of intestine, part unspecified, without perforation or abscess without bleeding
CPT/HCPCS: 36415; 80048; 85025

== ENCOUNTER → 2025-05-06 14:44 | Outpatient (REF) | payer OTHER, MEDICARE, SELFPAY | LOC: MRI 3T 14:44 | PROVIDERS: ATTENDING PHYSICIAN Nurse Practitioner; FAMILY PHYSICIAN Family Medicine | DX: Z87.19 Personal history of other diseases of the digestive system (principal) | CPT/HCPCS: 74183; A9575 ==